=== PATIENT | male | born 1945 | race Caucasian/White ===

== ENCOUNTER 2017-10-07 11:22 | Emergency (ER) | payer OTHER, BC ==
[~2017-10-07] VITALS: Ht 180.3 cm; Wt 109.0 kg
[~2017-10-07 11:22] MED LIST: ASPI81TA28 PO; GLCSR25 PO; LXP/20 PO; NVLGIPEN SC; OMEP20CA9 PO; ROSU5TAB PO; TADA10TA PO; TRAZ-120 PO; ZTA10 PO; [UNRECOGNIZED DRUG - SUPPLY] SC
[2017-10-07 11:26] VITALS: TEMP 36.5; Ht 180.3 cm; Wt 109.0 kg
--- NOTE | 2017-10-07 12:21 | DIAGNOSTIC IMAGING REPORT ---
LEFT KNEE 4 VIEWS CLINICAL HISTORY: Left knee pain status post trauma COMPARISON: None DISCUSSION: No acute fractures or dislocations are visualized. There are tiny dorsal patellar spurs. IMPRESSION: No acute fractures or dislocations identified. Electronically signed by: Lopez Jeter M.D. 10/07/2017 12:19 PM Dictated Date/Time: 10/07/2017 12:18 PM
[2017-10-07] MEDS ORDERED: INSDGIPEN SC (12:38)
[2017-10-07] MEDS ORDERED: ENBREL INJ (12:38)
--- NOTE | 2017-10-07 13:05 | EMERGENCY ROOM VISIT NOTE ---
ED Visit Note First contact with patient: 11:35 I did guide management for the patient. I agree with the APC's assessment as discussed. Please see the APC's dictation for further details. I did independently review the x-rays. The patient twisted his knee. He was placed in a knee immobilizer and told to follow up with his doctor or orthopedics. The patient was discharged prior to my being able to examine the patient.
--- NOTE | 2017-10-07 13:13 | EMERGENCY ROOM VISIT NOTE ---
ED Visit Note First contact with patient: 11:35 CHIEF COMPLAINT: Left knee injury yesterday afternoon HISTORY OF PRESENT ILLNESS: Patient is a 71-year-old white male who presents the emergency department for evaluation of left knee pain. He reports that yesterday afternoon he went outside and slipped on snow and ice. He did not fall, but states that he had to scramble to keep his balance, and while doing that, he somehow injured the left knee. He describes feeling a pulling or a snapping sensation mostly in the back of the left knee. He took Aleve yesterday. He states that when his knees completely straight or when it is bent at 90 he is relatively comfortable. He can also stand on the knee, and can walk but keeping his knee straight. He has discomfort when the knee twist at all. He rates his pain a 10/10 presently. He has psoriatic arthritis, but no specific diagnosis involving the left knee. REVIEW OF SYSTEMS: Review of systems as per HPI. All other systems reviewed were negative. At least 6 systems reviewed. PMH: Electronic medical records are reviewed and summarized as above/below. See Problem List. SOCIAL HISTORY: Patient lives at home with his . PHYSICAL EXAM: Vital Signs: Reviewed Nurse's notes. MENTAL STATUS: Patient is a well-appearing 71-year-old white male who is awake and alert and seated in a wheelchair in no acute distress. KNEE: Examination of the left lower extremity shows note multiple skin lesions consistent with psoriasis. The left knee does not demonstrate any soft tissue swelling or knee joint effusion. There is no pain over the quadriceps tendon, the patella or the patellar ligament. The patient can extend fully, no palpable defect over the quad tendon or the patellar ligament. He has no significant medial or lateral joint line discomfort. No popliteal fullness. No gross ligamentous instability is appreciated. EMERGENCY DEPARTMENT COURSE: The patient was seen and evaluated as above. X- rays of the left knee were obtained and were unremarkable. No acute findings were noted. Conservative care measures were discussed. Differential diagnoses entertained included meniscal tear, ligamentous injury, quad tendon rupture, patellar ligament rupture, among others. The patient has a benign physical exam at this time. He was fitted with a knee immobilizer. He reports that he has access to a cane or walker if needed. He can continue Aleve, he also reports that he has meloxicam at home. He declined narcotics. He was advised to follow-up with his primary care provider or with orthopedics if his symptoms are not improving. Medication reconciliation: I attest that I have personally reviewed the patient' s current medication list. Blood pressure screening: Patient was found to have a slightly elevated blood pressure initially, likely due to circumstances. Repeat blood pressure was normal. I do not believe that the patient requires hypertension monitoring. LEFT KNEE 4 VIEWS CLINICAL HISTORY: Left knee pain status post trauma COMPARISON: None DISCUSSION: No acute fractures or dislocations are visualized. There are tiny dorsal patellar spurs. IMPRESSION: No acute fractures or dislocations identified. Problem List Medical Problems: (1) Acute renal failure Status: Resolved (2) Diabetes Status: Chronic (3) Esophageal Reflux Status: Chronic (4) Hyperkalemia Status: Resolved (5) Hypertension Status: Chronic (6) Hypokalemia Status: Resolved (7) Psoriatic arthritis Status: Chronic Current/Historical Medications Scheduled Aspirin (Aspirin Ec), 81 MG PO DAILY Escitalopram Oxalate (Escitalopram Oxalate), 20 MG PO DAILY Ezetimibe (Zetia), 10 MG PO DAILY Insulin Aspart (Novolog Flexpen), 0 UNITS SC ACHS Insulin Glargine (Lantus Solostar), 40 UNITS SC QPM Omeprazole (Prilosec), 20 MG PO BID Rosuvastatin Calcium (Crestor), 5 MG PO HS Tadalafil (Cialis), 10 MG PO UD Trazodone Hcl (Desyrel), 50 MG PO HS [Enbrel], 1 DOSE INJ WK Allergies Coded Allergies: Methotrexate (Verified Allergy, Unknown, ., 11/03/14) Streptomycin (Verified Allergy, Unknown, ., 11/03/14) Sulfa Antibiotics (Verified Allergy, Unknown, ., 11/03/14) Tamsulosin (Verified Allergy, Unknown, ., 11/03/14) Vital Signs Date Time Temp Pulse Resp B/P (MAP) Pulse Ox O2 Delivery O2 Flow Rate FiO2 10/07/17 13:34 67 20 132/57 94 10/07/17 11:26 36.5 69 16 183/80 95 Room Air Departure Information Impression Primary Impression: Left knee injury Referrals Nato Barrientos M.D. (PCP) Vinod Rodriguez MD Patient Instructions [facility] [employer] Additional Instructions Continue Aleve or Mobic according to package instructions. Acetaminophen(Tylenol) may be used for fever or pain. Use 1000mg every six hours as needed. Avoid using more than 3000mg in a 24 hour period. This medication can be taken if you need to drive, work, or perform activities which may be dangerous when taking narcotic pain medication. Ice compresses for 20 minutes at a time four times daily for 2-3 days. Use the knee immobilizer as instructed. Rest and elevate your injury. Continue current medications. Return to the ER immediately for any numbness, tingling, severe pain, extreme swelling in the extremity or as needed. Follow-up with your family physician or with orthopedic surgery if your symptoms are not improving in 5-7 days.
[2017-10-07 13:34] VITALS: BP 132/57; PULSE 67; O2SAT 94
== END 2017-10-07 13:42 | disposition home or self-care (01) ==
LOC: C.EDB 11:23 → C.EDD 13:42
DX: S89.92XA Unspecified injury of left lower leg, initial encounter (principal); W00.9XXA Unspecified fall due to ice and snow, initial encounter; L40.50 Arthropathic psoriasis, unspecified; E11.9 Type 2 diabetes mellitus without complications; I10 Essential (primary) hypertension; Z79.82 Long term (current) use of aspirin; Z79.4 Long term (current) use of insulin

== ENCOUNTER 2020-03-15 10:35 | Observation (INO) ==
--- NOTE | 2020-03-15 11:23 | Emergency Department Note ---
History of Present Illness General Chief complaint: Shortness of Breath/Dyspnea Stated complaint: SOB, CHEST HEAVINESS, REF'D BY [facility] Time Seen by Provider: 03/15/20 11:07 Source: patient Mode of arrival: ambulatory Limitations: no limitations History of Present Illness Maximum Pain Intensity: 4 This patient was sent over from Dr. Mar's office after having weakness and diarrhea and shortness of breath as well as chest tightness. He has had this for a couple days the chest tightness is been constant he has had no cough but has had shortness of breath. He had nausea as well. No blood or melena in his stool. No fever chills he does have some mild achiness mostly in the back mild upper abdominal pain. His neighbor did have COVID within the last week or so. Otherwise no exposures. His who he lives with is well. Nothing in particular makes his pain better or worse. No associated dizziness or lighthe adedness. No focal numbness weakness. No blood or melena in stool. Home Medications Home Medications Medication Instructions Recorded Confirmed Type aspirin [Aspirin Low Dose] 81 mg PO DAILY #0 11/03/14 03/15/20 History escitalopram oxalate 20 mg PO DAILY #0 11/03/14 03/15/20 History rosuvastatin [Crestor] 5 mg PO DAILY #0 11/03/14 03/15/20 History trazodone 50 mg PO HS #0 11/03/14 03/15/20 History doxazosin 2 mg PO DAILY 03/15/20 03/15/20 History ezetimibe [Zetia] 10 mg PO DAILY 03/15/20 03/15/20 History insulin glargine [Lantus U-100 50 unit SUBCUT PM 03/15/20 03/15/20 History Insulin] insulin lispro [Humalog U-100 1 sliding scale dose SUBCUT 03/15/20 03/15/20 History Insulin] USEASDIRECTD irbesartan-hydrochlorothiazide 1 tab PO DAILY 03/15/20 03/15/20 History [Avalide] metformin 1,000 mg PO DAILY 03/15/20 03/15/20 History metformin 1,500 mg PO QPM 03/15/20 03/15/20 History multivitamin 1 tab PO DAILY 03/15/20 03/15/20 History omeprazole 20 mg PO DAILY 03/15/20 03/15/20 History secukinumab [Cosentyx Pen] 2 mg SUBCUT QPM 03/15/20 03/15/20 History Allergies Allergy/AdvReac Type Severity Reaction Status Date / Time methotrexate Allergy Unknown . Verified 03/15/20 11:26 streptomycin Allergy Unknown . Verified 03/15/20 11:26 Sulfa (Sulfonamide Allergy Unknown . Verified 03/15/20 11:26 Antibiotics) tamsulosin Allergy Unknown . Verified 03/15/20 11:26 Past Med/Surg History Family History (Updated 03/15/20 @ 14:47 by Meeta Martino DO) Father Myocardial infarction hx of bypass Social History (Updated 03/15/20 @ 14:47 by Meeta Martino DO) Preferred Language: [place]ralt[place] Communication Ability: Effective Scientific Research Manager Required: No Beliefs That Will Affect Care: None Current Living Situation: Spouse Other Information That Helps Us Care for You: No Feels Safe at Home: Yes Safety Concerns: Feels Safe At This Time Smoking Status: Former smoker Number of Years Since Quit: 50 ; Hx Alcohol Use: Yes Alcohol Intake Frequency Comment: once a month Hx Substance Use: No Immunizations: Past medical history includes diabetes. Denies cardiac or pulmonary disease. He is on no blood thinners besides aspirin Family historydenies cardiac disease Social history does not smoke. and lives locally with Review of Systems A total of 10 systems reviewed and were otherwise negative Physical Exam Vital Signs Vital Signs - 24 hr 03/15/20 10:38 03/15/20 11:00 03/15/20 11:01 Temperature 37.0 C Temperature Source Oral Pulse Rate 84 79 Pulse Rate from SpO2 Sensor Respiratory Rate 20 13 Respiratory Effort / Characteristics Non-Labored Short of Breath Respiratory Depth Normal Normal Respiratory Pattern Regular Blood Pressure 118/64 Blood Pressure Mean 82 Pulse Oximetry 94 Oxygen Delivery Method Room Air Sepsis Recent Fever Within 48 Hours No Sepsis Action Taken by Nursing No Action Required 03/15/20 11:18 03/15/20 11:30 03/15/20 12:10 Temperature Temperature Source Pulse Rate 76 73 Pulse Rate from SpO2 Sensor Respiratory Rate 14 20 Respiratory Effort / Characteristics Respiratory Depth Respiratory Pattern Blood Pressure Blood Pressure Mean Pulse Oximetry 93 Oxygen Delivery Method Room Air Room Air Sepsis Recent Fever Within 48 Hours Sepsis Action Taken by Nursing 03/15/20 12:30 03/15/20 13:00 03/15/20 13:30 Temperature Temperature Source Pulse Rate 76 73 73 Pulse Rate from SpO2 Sensor 76 80 Respiratory Rate 13 21 22 Respiratory Effort / Characteristics Respiratory Depth Respiratory Pattern Blood Pressure Blood Pressure Mean Pulse Oximetry 91 90 Oxygen Delivery Method Room Air Room Air Sepsis Recent Fever Within 48 Hours Sepsis Action Taken by Nursing 03/15/20 14:01 03/15/20 14:30 Temperature Temperature Source Pulse Rate 75 73 Pulse Rate from SpO2 Sensor 75 73 Respiratory Rate 12 16 Respiratory Effort / Characteristics Respiratory Depth Respiratory Pattern Blood Pressure 129/60 138/68 Blood Pressure Mean 73 101 Pulse Oximetry 96 95 Oxygen Delivery Method Room Air Room Air Sepsis Recent Fever Within 48 Hours Sepsis Action Taken by Nursing General: Well developed well nourished in no acute distress, breathing com fortably on room air. Normal speech HEENT: Normal cephalic atraumatic. Pupils are equal round and reactive to light. Extraocular movements are intact. Oropharynx is pink with moist mucous membranes. No swelling of the mouth lips or tongue. Neck: Supple with a midline trachea. No meningeal signs or stiffness, no JVD or bruits. No Stridor. Chest: Clear to auscultation bilaterally. No wheezes or rhonchi. No increased work of breathing. Heart: Regular rate and rhythm without murmurs or gallops. Abdomen: Soft nontender, nondistended without rebound guarding or rigidity. Extremities: No cyanosis clubbing or edema. No calf tenderness or assymetry Spine/Back. Non tender to palpation. No CVA tenderness Skin: Good turgor without rashes. Neurologic exam: Cranial nerves two through 12 are intact. Motor and sensation are intact and symmetrical throughout. Course Administered Medications Discontinued Medications Al Hydrox/Mg Hydrox/Simethicone () Confirm Administered Dose 1 dose PO .[employer]-MED ONE Stop: 03/15/20 14:37 Last Admin: 03/15/20 14:40 Dose: 1 dose Documented by: [id number] Al Hydrox/Mg Hydrox/Simethicone 18 ml/ Lidocaine HCl 6 ml/ BARCODE IDENTIFIER 1 ea 0 ml PO ONE ONE Stop: 03/15/20 14:38 Last Admin: 03/15/20 14:45 Dose: Not Given Documented by: [id number] Medical Decision Making Differential Diagnosis Acute coronary syndrome, arrhythmia, CHF, pneumonia, sepsis, COVID, electrolyte or metabolic abnormality, diabetic emergency Medical Records Attestation: I reviewed the patient's medical records. Home Medications Current Medication List: was personally reviewed by me Laboratory Data Attestation: I reviewed the patient's lab results. Result diagrams: 03/15/20 10:50 03/15/20 10:50 Lab Results 03/15/20 03/15/20 03/15/20 Range/Units 10:50 10:50 10:50 WBC 14.06 H (4.8-10.8) K/uL RBC 4.85 (4.7-6.1) M/uL Hgb 14.5 (14.0-18.0) g/dL Hct 43.5 (42-52) % MCV 89.7 (80-100) fL MCH 29.9 (25-34) pg MCHC 33.3 (32-36) g/dL RDW Std Deviation 43.8 (36.4-46.3) fL RDW Coeff of Matt 13.4 (11.5-14.5) % Plt Count 244 (130-400) K/uL MPV 10.0 (7.4-10.4) fL Immature Gran % (Auto) 0.3 % Neut % (Auto) 80.9 % Lymph % (Auto) 9.6 % [place] % (Auto) 6.5 % Eos % (Auto) 2.5 % Baso % (Auto) 0.2 % Neut # (Auto) 11.38 H (1.4-6.5) K/uL Lymph # (Auto) 1.35 (1.2-3.4) K/uL [place] # (Auto) 0.91 H (0.11-0.59) K/uL Eos # (Auto) 0.35 (0-0.5) K/uL Baso # (Auto) 0.03 (0-0.2) K/uL Immature Gran # (Auto) 0.04 H (0.00-0.02) K/uL PT 10.9 (9.0-12.0) Seconds INR 1.0 (0.9-1.1) APTT 29.3 (21.0-31.0) Seconds PTT Ratio 1.1 Sodium 135 L (136-145) mmol/L Potassium 4.2 (3.5-5.1) mmol/L Chloride 101 (98-107) mmol/L Carbon Dioxide 26 (21-32) mmol/L Anion Gap 8.0 (3-11) BUN 20 H (7-18) mg/dl Creatinine 1.22 (0.6-1.4) mg/dl Est Cr Clr Drug Dosing 68.0 ml/min Est GFR ( Amer) 68.2 Est GFR (Non-Af Amer) 58.9 BUN/Creatinine Ratio 16.5 (10-20) Glucose 229 H (70-99) mg/dl Calcium 9.4 (8.5-10.1) mg/dl Total Bilirubin 0.5 (0.2-1) mg/dl AST 26 (15-37) U/L ALT 22 (12-78) U/L Alkaline Phosphatase 115 (45-117) U/L Troponin I < 0.015 (0-0.045) ng/ml NT-Pro-B Natriuret Pep 37 (0-900) pg/ml Total Protein 8.5 H (6.4-8.2) gm/dl Albumin 3.4 (3.4-5.0) gm/dl Globulin 5.1 H (2.5-4.0) gm/dl Albumin/Globulin Ratio 0.7 L (0.9-2) Lipase 144 (73-393) U/L COVID-19 PCR (Negative) 03/15/20 Range/Units 12:00 WBC (4.8-10.8) K/uL RBC (4.7-6.1) M/uL Hgb (14.0-18.0) g/dL Hct (42-52) % MCV (80-100) fL MCH (25-34) pg MCHC (32-36) g/dL RDW Std Deviation (36.4-46.3) fL RDW Coeff of Matt (11.5-14.5) % Plt Count (130-400) K/uL MPV (7.4-10.4) fL Immature Gran % (Auto) % Neut % (Auto) % Lymph % (Auto) % [place] % (Auto) % Eos % (Auto) % Baso % (Auto) % Neut # (Auto) (1.4-6.5) K/uL Lymph # (Auto) (1.2-3.4) K/uL [place] # (Auto) (0.11-0.59) K/uL Eos # (Auto) (0-0.5) K/uL Baso # (Auto) (0-0.2) K/uL Immature Gran # (Auto) (0.00-0.02) K/uL PT (9.0-12.0) Seconds INR (0.9-1.1) APTT (21.0-31.0) Seconds PTT Ratio Sodium (136-145) mmol/L Potassium (3.5-5.1) mmol/L Chloride (98-107) mmol/L Carbon Dioxide (21-32) mmol/L Anion Gap (3-11) BUN (7-18) mg/dl Creatinine (0.6-1.4) mg/dl Est Cr Clr Drug Dosing ml/min Est GFR ( Amer) Est GFR (Non-Af Amer) BUN/Creatinine Ratio (10-20) Glucose (70-99) mg/dl Calcium (8.5-10.1) mg/dl Total Bilirubin (0.2-1) mg/dl AST (15-37) U/L ALT (12-78) U/L Alkaline Phosphatase (45-117) U/L Troponin I (0-0.045) ng/ml NT-Pro-B Natriuret Pep (0-900) pg/ml Total Protein (6.4-8.2) gm/dl Albumin (3.4-5.0) gm/dl Globulin (2.5-4.0) gm/dl Albumin/Globulin Ratio (0.9-2) Lipase (73-393) U/L COVID-19 PCR NEGATIVE (Negative) Imaging Data Attestation: I personally reviewed and interpreted this imaging study as follows: My Impression: Checks x-ray: No acute infiltrate failure, pneumothorax on my interpretation Radiologist's Impression: XR chest 1V portable CLINICAL HISTORY: Atypical chest pain COMPARISON STUDY: 11/03/2014 FINDINGS: The heart is enlarged. There is no focal pulmonary consolidation. There is no failure. There are no pleural effusions.[ IMPRESSION: Mild cardiomegaly. No evidence of focal pulmonary consolidation ECG Data Indication: + chest pain Rate (beats per minute): 75 Rhythm: + normal sinus ECG Intervals/blocks: + Normal QRS, + Normal QT and + Normal DE ECG [place]: + Normal ECG ST segments: + Normal ST segments ECG Findings: no PACs and no PVCs Comparison ECG Date: from Blood Pressure Blood Pressure Findings: Elevated blood pressure Blood Pressure Disposition: elevated BP felt to be situational MDM Narrative This patient comes in as described above. He was placed in room a 11 he has had chest pain and shortness of breath. He also has had a exposure to COVID he is also had diarrhea and achiness. Given that he is diabetic and has had chest pain he will all likelihood need to be admitted to the hospital for further cardiac rule out. His initial EKG looks okay however. I did do the rapid Covid testing as well. IV access was established and multiple blood testing was obtained. EKG does not suggest acute ischemic changes or significant arrhythmia. She has no acute electrolyte or metabolic abnormalities. Troponin is not elevated. Chest x-ray is unremarkable. Rapid COVID was negative. I do think given that he is a diabetic that he should be admitted/observe for further cardiac work-up and evaluation and have consulted Meeta Martino, the [facility] hospitalist to see him in athletics measures. Continuous cardiac monitoring: An order was placed for continuous cardiac monitoring. The patient was noted to be in normal sinus rhythm at a rate of 80. Impression & Plan Chest pressure, SOB (shortness of breath), Diabetes, Nausea, Lab test negative for COVID-19 virus Discharge Plan Visit Data *Final* Discharge Date/Time: 03/15/20 15:27 Chief Complaint: Shortness of Breath/Dyspnea Stated Complaint: SOB, CHEST HEAVINESS, REF'D BY [facility] ED Provider: Eren Lamb Discharge Problem: Chest pressure, SOB (shortness of breath), Diabetes, Nausea, Lab test negative for COVID-19 virus Patient Disposition: Admitted As Inpatient Discharge Instructions Interventions: ED Discharge Assessment Last Done: 03/15/20 15:27 Discharge Problem: Diabetes Qualifiers: Diabetes mellitus type: type 2 Diabetes mellitus fdc insulin use: with long term care pharmacist use Diabetes mellitus complication status: with other specified complication Qualified Code(s): E11.69 - Type 2 diabetes mellitus with other specified complication
[2020-03-15 11:33] LABS: Basophils # (auto) 0.03 K/uL (0-0.2); Basophils % (auto) 0.2 %; Eosinophils # (auto) 0.35 K/uL (0-0.5); Eosinophils % (auto) 2.5 %; Hematocrit (blood only) 43.5 % (42-52); Hemoglobin 14.5 g/dL (14.0-18.0); Immature Granulocytes # (auto) 0.04 K/uL (0.00-0.02); Immature Granulocytes % (auto) 0.3 %; Lymphocytes # (auto) 1.35 K/uL (1.2-3.4); Lymphocytes % (auto) 9.6 %; Mean Corpuscular Hemoglobin 29.9 pg (25-34); Mean Corpuscular Hgb Conc 33.3 g/dL (32-36); Mean Corpuscular Volume 89.7 fL (80-100); Monocytes # (auto) 0.91 K/uL (0.11-0.59); Monocytes % (auto) 6.5 %; Neutrophils # (auto) 11.38 K/uL (1.4-6.5); Neutrophils % (auto) 80.9 %; Platelet Count 244 K/uL (130-400); RDW Coefficient of Variation 13.4 % (11.5-14.5); RDW Standard Deviation 43.8 fL (36.4-46.3); Red Blood Count 4.85 M/uL (4.7-6.1); White Blood Count 14.06 K/uL (4.8-10.8)
[2020-03-15 11:40] LABS: Alanine Aminotransferase 22 U/L (12-78); Albumin Level 3.4 gm/dl (3.4-5.0); Aspartate Aminotransferase 26 U/L (15-37); BUN Creatinine Ratio 16.5 (10-20); Blood Urea Nitrogen 20 mg/dl (7-18); Calcium 9.4 mg/dl (8.5-10.1); Carbon Dioxide 26 mmol/L (21-32); Chloride 101 mmol/L (98-107); Est GFR (African American) 68.2; Est GFR (Non-African American) 58.9; Glucose 229 mg/dl (70-99); Lipase 144 U/L (73-393); Potassium 4.2 mmol/L (3.5-5.1); Sodium 135 mmol/L (136-145)
[2020-03-15 11:45] LABS: Partial Thromboplastin Ratio 1.1; Partial Thromboplastin Time 29.3 Seconds (21.0-31.0); Prothrombin Time 10.9 Seconds (9.0-12.0)
[2020-03-15 11:49] LABS: Albumin Globulin Ratio 0.7 (0.9-2); Alkaline Phosphatase 115 U/L (45-117); Bilirubin,Total 0.5 mg/dl (0.2-1); Globulin 5.1 gm/dl (2.5-4.0); NT Pro B Type Natriuretic Pept 37 pg/ml (0-900); Total Protein 8.5 gm/dl (6.4-8.2); Troponin I < 0.015 ng/ml (0-0.045)
--- NOTE | 2020-03-15 11:57 | XRay Report ---
XR chest 1V portable CLINICAL HISTORY: Atypical chest pain COMPARISON STUDY: 11/03/2014 FINDINGS: The heart is enlarged. There is no focal pulmonary consolidation. There is no failure. Ther e are no pleural effusions.[ IMPRESSION: Mild cardiomegaly. No evidence of focal pulmonary consolidation ACT 112: Negative or not required by law. Electronically signed by: Lopez Jeter M.D. 03/15/2020 11:55 AM
--- NOTE | 2020-03-15 12:48 | History & Physical Report ---
Date of Service March 15, 2020 Assessment & Plan (1) Chest pressure: r/o ACS given DM, FHx of CO CXR: neg for acute Trop neg x1, serial pending EKG WNL PRP, lipase WNL CBC with elevated WBC, otherwise WNL Does relate that this feels similar to GERD and with slight improvement s/p repeat omeprazole dosing--GI cocktail trial t/c CT given breathing restrictions t/c stress ECHO if trop neg x3 given breathing restrictions and increased chest pressure with walking dog A1c, lipids pending--none in our EHR Lyme pending Takes aspirin 81mg at baseline for prevention COVID 19 testing neg, will not continue with isolation precautions (2) Leukocytosis: Uncertain etiology Repeat in AM (3) DM type 2 (diabetes mellitus, type 2): Lantus, metformin as at home given likely short duration of admission SSI PRN A1c pending (4) Psoriasis: Worsening in the setting of holding home cosentyx due to immunocompromise concerns with COVID (5) Hyperlipidemia: continue home meds (6) GERD (gastroesophageal reflux disease): As above continue home meds (7) DVT prophylaxis: SCDs, aspirin 81mg History of Present Illness Primary Care Provider: Nato Barrientos MD 74 y/o M c/o chest pressure. Pt states that this started yesterday. He states that he was at rest with this. Pain is substernal and upper chest. He states it feels like his heartburn, but more intense. He did take an extra omeprazole and this did relieve this pressure somewhat, however it returned. It has persisted. He states that when he is moving around it feels more tight. No sravan chest p ain. He states that he feels like he has to take a deeper breath when he is walking his dog. No sravan SOB, but he does feel that "I just need more air". He denies usual exercise other than walking his dog. He did have diarrhea x1 yesterday. None since. He was also nauseated yesterday, but no emesis. He has had decreased PO today due to no appetite. Pt has never felt like this prior, other than the similarity noted to his reflux above. Pt denies fever, abd pain, LE pain or swelling. Pt feels no different at this time. 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 Pt states he has a neighbor who was dx with COVID. He states that he has had no close contact with this neighbor. He has spoken with the neighbor while the neighbor was out on his tractor, but this was from over 20 feet away. Pt was taken off of his cosentyx in November due to concerns that it would weaken his immune system. He states that his psoriasis is worse at this time. Allergies Allergy/AdvReac Type Severity Reaction Status Date / Time methotrexate Allergy Unknown . Verified 03/15/20 11:26 streptomycin Allergy Unknown . Verified 03/15/20 11:26 Sulfa (Sulfonamide Allergy Unknown . Verified 03/15/20 11:26 Antibiotics) tamsulosin Allergy Unknown . Verified 03/15/20 11:26 Home Medications Home Medications Medication Instructions Recorded Confirmed Type aspirin [Aspirin Low Dose] 81 mg PO DAILY #0 11/03/14 03/15/20 History escitalopram oxalate 20 mg PO DAILY #0 11/03/14 03/15/20 History rosuvastatin [Crestor] 5 mg PO DAILY #0 11/03/14 03/15/20 History trazodone 50 mg PO HS #0 11/03/14 03/15/20 History doxazosin 2 mg PO DAILY 03/15/20 03/15/20 History ezetimibe [Zetia] 10 mg PO DAILY 03/15/20 03/15/20 History insulin glargine [Lantus U-100 50 unit SUBCUT PM 03/15/20 03/15/20 History Insulin] insulin lispro [Humalog U-100 1 sliding scale dose SUBCUT 03/15/20 03/15/20 History Insulin] USEASDIRECTD irbesartan-hydrochlorothiazide 1 tab PO DAILY 03/15/20 03/15/20 History [Avalide] metformin 1,000 mg PO DAILY 03/15/20 03/15/20 History metformin 1,500 mg PO QPM 03/15/20 03/15/20 History multivitamin 1 tab PO DAILY 03/15/20 03/15/20 History omeprazole 20 mg PO DAILY 03/15/20 03/15/20 History secukinumab [Cosentyx Pen] 2 mg SUBCUT QPM 03/15/20 03/15/20 History Past Med/Surg History Family History (Updated 03/15/20 @ 14:47 by Meeta Martino DO) Father Myocardial infarction hx of bypass Social History (Updated 03/15/20 @ 14:47 by Meeta Martino DO) Feels Safe at Home: Yes Smoking Status: Former smoker Number of Years Since Quit: 50 ; Hx Alcohol Use: Yes Alcohol Intake Frequency Comment: once a month Hx Substance Use: No Review of Systems Review of Systems: Pertinent positives and negatives reviewed in HPI--all others negative Physical Exam Constitutional: WD/WN, vitals as above Eyes: normal visual gil by confrontation and + anicteric sclerae Neck: normal visual inspection and trachea midline Respiratory: normal respiratory effort, lungs clear to auscultation Cardiovascular: Rate/Rhythm: regular rate and regular rhythm Gastrointestinal (Abdomen): Inspection/Auscultation: abdomen not distended Percussion/Palpation: abdomen soft; abdomen nontender Musculoskeletal: Head/Neck/Chest: normocephalic and head atraumatic negative for edema, peripheral pulses intact Skin: UE with lesions c/w psoriasis Neurologic: awake; not confused Speech / Cognition: normal speech Psychiatric: A+Ox3, euthymic affect Results & Data Results & Data ([facility]) Vital Signs (Past 12 Hours) Vital Signs Temp Pulse Resp BP Pulse Ox 03/15/20 12:10 73 20 93 03/15/20 11:30 76 14 03/15/20 11:01 79 13 03/15/20 10:38 37.0 C 84 20 118/64 94 Diagnostic Findings CXR: neg for acute ECG Rhythm: normal sinus Code Status & VTE Plan Code Status Full code VTE Prophylaxis Plan VTE Prophylaxis will be ordered: Yes PG Care Time/CCT Total # of Minutes Spent Total Time Spent with Patient: Total time spent is greater than 50% in coordination of care (as documented) at patient's floor/unit and/or counseling patient: Coding Level of Care Code 14197 OBS Care - Level 3 Diagnoses Chest pressure R07.89 Leukocytosis D72.829 DM type 2 (diabetes mellitus, type 2) E11.9 Psoriasis L40.9 Hyperlipidemia E78.5 GERD (gastroesophageal reflux disease) K21.9 DVT prophylaxis Z29.9
[2020-03-15] MEDS ORDERED: GI COCKTAIL ED USE PO ONE (14:36)
[2020-03-15] MEDS ORDERED: ALUMINUM/MAGNESIUM SUSP 18 ML, LIDOCAINE HCL VISCOUS 2% 6 ML, BARCODE IDENTIFIER 1 EA PO ONE (14:37)
[2020-03-15] MEDS ORDERED: GLUCOSE 40% GEL 15 GM TUBE PO PRN (15:54)
[2020-03-15] MEDS ORDERED: GLUCAGON FOR INJ 1 MG VIAL SQ PRN (15:54)
[2020-03-15] MEDS ORDERED: ONDANSETRON INJ 2 MG/ML 2 ML VIAL IV PRN (15:54)
[2020-03-15] MEDS ORDERED: GLUCOSE 10 TABS/TUBE PO PRN (15:54)
[2020-03-15] MEDS ORDERED: CARBOHYDRATES FOR HYPOGLYCEMIA PO PRN (15:54)
[2020-03-15] MEDS ORDERED: MAGNESIUM HYDROXIDE SUSP 30 ML UDC PO PRN (15:54)
[2020-03-15] MEDS ORDERED: DEXTROSE 50% 50 ML SYRINGE IV PRN (15:54)
[2020-03-15] MEDS ORDERED: ACETAMINOPHEN 325 MG TAB PO PRN (15:54)
[2020-03-15] MEDS ORDERED: METFORMIN HCL 500 MG TAB PO SCH (17:00)
[2020-03-15] MEDS: INSULIN ASPART 100 UNITS/ML 3 ML PEN SC SCH ×2 (17:31→20:16)
[2020-03-15 18:32] LABS: Lyme Ab IgG w/WB Rflx Negative (Negative); Lyme Ab IgM w/WB Rflx Negative (Negative)
[2020-03-15] MEDS ORDERED: TRAZODONE HCL 50 MG TAB PO SCH (21:00)
[2020-03-15] MEDS ORDERED: INSULIN GLARGINE SOLOSTAR 100 UNITS/ML 3 ML PEN SC SCH (21:00)
--- NOTE | 2020-03-15 21:51 | Electrocardiogram Report ---
Test Reason : Blood Pressure : / mmHG Vent. Rate : 075 BPM Atrial Rate : 075 BPM P-R Int : 198 ms QRS Dur : 090 ms QT Int : 372 ms P-R-T Axes : 056 022 046 degrees QTc Int : 415 ms Normal sinus rhythm Normal ECG When compared with ECG of 03-NOV-2014 18:01, No significant change was found Confirmed by Saturnino Ham ([id number]) on 03/15/2020 9:50:47 PM Referred By: REFERRED SELF Confirmed By:Saturnino Ham
[2020-03-16] MEDS ORDERED: METFORMIN HCL 500 MG TAB PO SCH (07:30)
[2020-03-16] MEDS: INSULIN ASPART 100 UNITS/ML 3 ML PEN SC SCH ×2 (07:56→12:27)
[2020-03-16 08:33] LABS: Basophils # (auto) 0.02 K/uL (0-0.2); Basophils % (auto) 0.1 %; Eosinophils # (auto) 0.27 K/uL (0-0.5); Eosinophils % (auto) 1.9 %; Hematocrit (blood only) 43.7 % (42-52); Hemoglobin 14.6 g/dL (14.0-18.0); Immature Granulocytes # (auto) 0.04 K/uL (0.00-0.02); Immature Granulocytes % (auto) 0.3 %; Lymphocytes # (auto) 1.17 K/uL (1.2-3.4); Lymphocytes % (auto) 8.1 %; Mean Corpuscular Hgb Conc 33.4 g/dL (32-36); Mean Corpuscular Volume 89.7 fL (80-100); Monocytes # (auto) 1.16 K/uL (0.11-0.59); Neutrophils # (auto) 11.82 K/uL (1.4-6.5); Neutrophils % (auto) 81.6 %; Platelet Count 234 K/uL (130-400); RDW Coefficient of Variation 13.3 % (11.5-14.5); RDW Standard Deviation 43.9 fL (36.4-46.3); Red Blood Count 4.87 M/uL (4.7-6.1); White Blood Count 14.48 K/uL (4.8-10.8)
[2020-03-16] MEDS ORDERED: ROSUVASTATIN CALCIUM 5 MG TAB PO SCH (09:00)
[2020-03-16] MEDS ORDERED: ESCITALOPRAM OXALATE 20 MG TAB PO SCH (09:00)
[2020-03-16] MEDS ORDERED: ASPIRIN 81 MG ECTAB PO SCH (09:00)
[2020-03-16] MEDS ORDERED: PANTOprazole 40 MG TAB PO SCH (09:00)
[2020-03-16] MEDS ORDERED: hydroCHLOROthiazide 25 MG TAB PO SCH (09:00)
[2020-03-16] MEDS ORDERED: EZETIMIBE 10 MG TABLET PO SCH (09:00)
[2020-03-16] MEDS ORDERED: MULTIVITAMIN TAB PO SCH (09:00)
[2020-03-16] MEDS ORDERED: DOXAZosin MESYLATE TAB 2 MG TAB PO SCH (09:00)
[2020-03-16] MEDS ORDERED: IRBESARTAN 150 MG TAB PO SCH (09:00)
[2020-03-16 09:05] LABS: Chol HDL Ratio 3; Cholesterol 129 mg/dl (0-200); HDL Cholesterol 51 mg/dl; LDL Cholesterol Calculated 48 mg/dl; Triglycerides 151 mg/dl (0-150); VLDL Cholesterol 30 mg/dl
[2020-03-16 09:45] LABS: Estimated Average Glucose 226 mg/dl; Hemoglobin A1C 9.5 % (4.5-5.6)
--- NOTE | 2020-03-16 13:17 | XCELERA ---
[id number]
--- NOTE | 2020-03-16 15:25 | Discharge Summary ---
Date of Service March 16, 2020 Admission HPI Per Admitting Provider 74 y/o M c/o chest pressure. Pt states that this started yesterday. He states that he was at rest with this. Pain is substernal and upper chest. He states it feels like his heartburn, but more intense. He did take an extra omeprazole and this did relieve this pressure somewhat, however it returned. It has persisted. He states that when he is moving around it feels more tight. No sravan chest pain. He states that he feels like he has to take a deeper breath when he is walking his dog. No sravan SOB, but he does feel that "I just need more air". He denies usual exercise other than walking his dog. He did have diarrhea x1 yesterday. None since. He was also nauseated yesterday, but no emesis. He has had decreased PO today due to no appetite. Pt has never felt like this prior, other than the similarity noted to his reflux above. Pt denies fever, abd pain, LE pain or swelling. Pt feels no different at this time. 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 Pt states he has a neighbor who was dx with GERRY. He states that he has had no close contact with this neighbor. He has spoken with the neighbor while the neighbor was out on his tractor, but this was from over 20 feet away. Pt was taken off of his cosentyx in November due to concerns that it would weaken his immune system. He states that his psoriasis is worse at this time. Admission Exam Per Admitting Provider Constitutional: WD/WN, vitals as above Eyes: normal visual gil by confrontation and + anicteric sclerae Neck: normal visual inspection and trachea midline Respiratory: normal respiratory effort, lungs clear to auscultation Cardiovascular: Rate/Rhythm: regular rate and regular rhythm Gastrointestinal (Abdomen): Inspection/Auscultation: abdomen not distended Percussion/Palpation: abdomen soft; abdomen nontender Musculoskeletal: Head/Neck/Chest: normocephalic and head atraumatic negative for edema, peripheral pulses intact Skin: UE with lesions c/w psoriasis Neurologic: awake; not confused Speech / Cognition: normal speech Psychiatric: A+Ox3, euthymic affect Principal Diagnosis Chest pain Discharge Exam Constitutional WD/WN, vitals as above Eyes + anicteric sclerae ENMT external ear and nose normal, oropharynx normal Neck normal visual inspection and trachea midline Respiratory normal respiratory effort, lungs clear to auscultation Cardiovascular RRR, no murmur, no edema Heart Sounds: normal S1 and normal S2 Gastrointestinal (Abdomen) normal bowel sounds, soft, nontender, no hepatosplenomegaly Skin no rashes, warm and dry Psychiatric A+Ox3, euthymic affect Discharge Data Allergies Allergy/AdvReac Type Severity Reaction Status Date / Time methotrexate Allergy Unknown . Verified 03/15/20 11:26 streptomycin Allergy Unknown . Verified 03/15/20 11:26 Sulfa (Sulfonamide Allergy Unknown . Verified 03/15/20 11:26 Antibiotics) tamsulosin Allergy Unknown . Verified 03/15/20 11:26 Consultations 03/15/20 12:34 ED Decision to Admit Stat Hospital Course (1) Chest pain: Mr. Anderson is a 74 yo gentleman with a PMHx of GERD and type II diabetes who presented to the ED with chest pain. He was admitted for an ACS rule out. Trops x 3 were negative. EKG normal. Stress ECHO showing normal function, no symptoms or EKG changes with physical activity, normal LV function, only mild mitral regurg. The etiology of his chest pain was thought to be a flare of his GERD. Outpatient items to do: Risk factor management (see below) (2) GERD (gastroesophageal reflux disease): Thought to be cause of his chest pain. He likened the discomfort to acid reflux and admitted some relief with taking an extra omeprazole dose. He was counseled on avoiding dietary triggers of reflux such as citrus, alcohol, chocolate and coffee. He was counseled on sitting upright for at least 30 minutes after eating (prior to this he had a habit of lying down after consuming a meal). Prior to hospital stay he has taking a 20mg daily dose of omeprazole. He was counseled to either double his dose or stay at the 20mg dose and take famotidine prn for increased symptoms. Oupatient items to do: Follow up on GERD symptoms (3) DM type 2 (diabetes mellitus, type 2): Risk factor for ACS. Found to have an A1c of 9.5 on admission, well above goal. Counseled patient extensively on how elevated blood sugars clog arteries and lead to downstream complications. His A1c has been in the artery-clogging region for quite sometime (on review of outside records A1c from 01/2019 was 8.9). Counseled patient on avoiding carbohydrate rich foods. Currently, he is taking Lantus 60units daily. He is checking is blood glucose only once daily before dinner and taking a mealtime Humalog dose according to this value. Mr. Stewart was counseled on the principle of carb counting, and dosing Humalog according to suspected carbohydrate content of meal. Overall, he his A1c thought to be elevated to insufficient insulin dosing. He is on an ARB, a daily baby ASA and a high intensity statin. Lipid panel drawn in hospital showed TH of 151, total chol of 129, LDL 48, HDL 57, ratio of 3. Outpatient items to do: Continue education of carbohydrate counting, insulin:carb ratios and meal-time insulin dosing. Patient should be checking sugars TID and would benefit from humalog dosing with each meal, not just dinner. (4) Leukocytosis: On admission WBC elevated to 14, although there was no suspicion for infectious etiology. On day of discharge level was repeated and remained of 14. Outpatient items to do: consider repeating in several weeks and if still elevated, consider ordering a smear to assess for atypia. Total Time Total Time Spent Total Time Spent (In Minutes): <30 Discharge Plan Discharge Items Patient Disposition: Home - Self-Care Reason For Visit: CHEST PRESSURE Discharge Diagnosis: Chest pain Activity: Resume your previous activity Non-emergency contact: Primary Care Provider Call non-emergency contact if: your symptoms worsen Follow-up/Referrals: Nato Barrientos MD [Primary Care Provider] - Diet: Carb Consistent or DM2 Addtl Attending Provider Instructions: You were hospitalized at [facility] for evaluation of chest pain. All testing was reassuring that you did not have a heart attack. Instead, the cause of your chest pain seemed to be related to your acid reflux. By the time of discharge, your symptoms resolved. We recommend you continue your Omeprazole 20mg, daily, but if your symptoms recur, you may take a second dose each day. We reviewed dietary triggers that are known to worsen reflux. They include citrus, alcohol, chocolate, any red/marinara sauce, and coffee. You may want to avoid or reduce your consumption of these items. We also recommend you stay upright for at least 30 minutes after eating any meal to reduce reflux symptoms. While you were in the hospital your hemoglobin A1c was ordered an was elevated to 9.5. Your goal is < 7.0. This is concerning because elevated blood sugars clog arteries, which can lead to heart attacks, strokes, blindness, neuropathy, and kidney damage. We discussed your diabetes and your current therapy regimen. We recommend you continue to take Metformin 2.5 grams, daily, and to continue your current basal, or long-acting insulin regimen. However, when you see your primary care provider next week, you will likely adjust your meal-time insulin dosing with Humalog to three times per day, rather than just at dinner. We introduced the concept of 'carb counting' and administering yourself the appropriate amount of insulin according to carbs you consume. In general, the fewer carbs you consume, the less insulin you need to "cover" them. We also encouraged routine exercise, as physical activity haley up excess carbohydrates that you consume. Please see your PCP within one week of discharge. Pending Studies at Discharge: No Stand-Alone Forms: My [facility], Smoking Cessation Medications and DC Order Prescriptions: Continued trazodone 50 mg Tablet 50 mg PO HS Qty: 0 RF: 0 escitalopram oxalate 20 mg Tablet 20 mg PO DAILY Qty: 0 RF: 0 rosuvastatin [Crestor] 5 mg Tablet 5 mg PO DAILY Qty: 0 RF: 0 aspirin [Aspirin Low Dose] 81 mg Tablet,Delayed Release (Dr/Ec) 81 mg PO DAILY Qty: 0 RF: 0 multivitamin Tablet 1 tab PO DAILY RF: 0 omeprazole 20 mg Capsule,Delayed Release(Dr/Ec) 20 mg PO DAILY RF: 0 doxazosin 2 mg Tablet 2 mg PO DAILY RF: 0 ezetimibe [Zetia] 10 mg Tablet 10 mg PO DAILY RF: 0 Lantus U-100 Insulin 100 unit/mL Solution 50 unit SUBCUT PM RF: 0 irbesartan-hydrochlorothiazide [Avalide] 150-12.5 mg Tablet 1 tab PO DAILY RF: 0 metformin 1,000 mg Tablet 1,000 mg PO DAILY RF: 0 metformin 1,000 mg Tablet 1,500 mg PO QPM RF: 0 insulin lispro [Humalog U-100 Insulin] 100 unit/mL Solution 1 sliding scale dose SUBCUT USEASDIRECTD RF: 0 Cosentyx Pen 150 mg/mL Pen Injector 2 mg SUBCUT QPM RF: 0 Discharge Orders: Discharge Order (Routine); Ordered 03/16/20 Ordered By: Neema Polk/Other Patient Handouts: Diabetes and Heart Disease, Healthy Meals for Diabetes, Diabetes: The Benefits of Exercise, Managing Diabetes: The A1C Test Admission Data Admit Date/Time: 03/15/20 14:41 Attending Provider: Seb Andrea Admit Provider: Meeta Martino Primary Care Provider: Nato Barrientos Other Providers: Meeta Martino Other Interventions: Discharge Summary Assessment (RN) Last Done: 03/16/20 15:35 DC Date/Time DO NOT enter until pt leaves facility: 03/16/20 15:54 Supervising Physician Co-Signing Physician Notes I personally examined the patient and verified all donnelly points of history and exam, discussed case, and agree with decision making with Dr Tavera. feeling better. stress negative. discussed most likely GERD vitals noted nad heent nc at mmm breathing unlabored no accessory muscles good effort skin no rashes no pallor or icterus CP - GERD. troponins negative, stress reassurring and sx fit best w GERD. GERD/indigestion - discussed lifestyle/diet changes. can increase PPI. uncontrolled DM - dr taevra provided extensive education. or ongoing adjustments in insulin and lifestyle changes stable for home. otherwise as above Resident Activity Tracking Resident Involvement: Resident Care Provided Care Provided: Adult Hospital Medicine
--- NOTE | 2020-03-16 18:23 | Billing Data ---
Date of Service March 16, 2020 Coding Level of Care Code 43279 OBS Care - Discharge
== END 2020-03-16 15:54 | disposition home or self-care (01) ==
LOC: 2W 10:35 → ED 10:35 → SUATTDRO 14:41 → 2W 15:27

== ENCOUNTER 2025-04-20 15:44 | Inpatient (IN) ==
--- NOTE | 2025-04-20 16:30 | Emergency Department Note ---
Impression & Plan Acute confusion, Hypoglycemia, Elevated troponin ED Provider Note HISTORY OF PRESENT ILLNESS: Patient is a 79-year-old male presenting with hypoglycemia. Patient presents via EMS. Patient reportedly had a glucose of over 400 at lunchtime and took his 20 units of Humalog insulin. He reportedly took his blood sugar about 30 minutes later and his glucose was still in the 400s so states he took another dose of insulin. She thinks it was another 20 units of Humalog. She states that the patient went to shower and when he was trying to get dressed he fell and landed on his buttock. He is currently complaining of low back pain. He did not strike his head or lose consciousness. Family reports that he was quite confused when his sugar was very high and now he seems "really out of it." Patient had a fingerstick glucose in the 40s for EMS and was given D10 and Sheriff. On arrival to the emergency department, patient's blood sugar was 47. He was given orange juice. ROS: as above PHYSICAL EXAM: Constitutional: Patient appears in no acute distress. HENT: Head: Normocephalic and atraumatic. Eyes: EOMI, PERRL Mouth/Throat: Mucous membranes moist. Neck: Trachea midline. Neck supple. Cardiovascular: RRR, No murmurs, rubs or gallops. Intact distal pulses. Pulmonary/Chest: No respiratory distress. Breath sounds clear and equal bilaterally. No wheezes or rales. Abdominal: Abdomen soft, no tenderness, rebound or guarding. Musculoskeletal: No edema, tenderness or deformity noted. Skin: Warm and dry. No rash, erythema, pallor or cyanosis Neurological: Alert but confused to place and events. CN II-XII grossly intact, moving all extremities equally and fully. MDM: - Vitals signs showed hypertension. Patient had initial blood sugar of 47 on arrival to the emergency department and was given to orange juice containers. On reassessment about 15 minutes later, his blood sugar is still in the 40s. He was given more orange juice and peanut butter crackers and D50 was ordered. - History obtained via patient's family, given patient's confusion. History as above. - Chronic conditions affecting care: DM-2; HTN; HLD - Differential diagnoses include, but are not limited to: Insulin overdose; sulfonylurea use; electrolyte abnormality; spinal fracture; ACS; dysrhythmia - Order placed for continuous cardiac monitoring. At this time, monitor showed rate of 83 bpm with normal sinus rhythm, per my interpretation. - External medical records reviewed. - EKG image interpreted by myself showed normal sinus rhythm. Rate 73 bpm. QT 396. No acute ischemic changes. - Laboratory workup interpreted by myself showed leukocytosis (WBC 16.78); normal PT/INR; hypoglycemia (glucose 38); elevated troponin (25); normal lipase - Repeat troponin still elevated at 27.4. - Patient was given D50 on arrival to ER. His repeat glucose was above 100, but on repeat it went down to 80 again. Started on D10 at 80 cc/hr. - Patient's mental status improved with improvement in his hypoglycemia. However, after CT imaging he had a blood glucose level of 70 on the D10 drip. The D10 has been continued and he is now being fed a dinner tray. - CT thoracic spine wo contrast negative for acute traumatic injury. - CT lumbar spine wo contrast showed 0.7 cm disc herniation at L4/L5 causing mild canal stenosis - Discussion was had with case packer about patient's case and need for admission - Hospitalist consulted for admission - [facility] ASSESSMENT AND PLAN: Diagnosis: Acute confusion; recurrent hypoglycemia; elevated troponin Plan: Admit Past Med/Surg History Problem List (Updated 04/20/25 @ 20:07 by Perri Bella MD) Elevated troponin (Acute) Hypoglycemia (Acute) Acute confusion (Acute) Chest pain Lab test negative for COVID-19 virus (Acute) Nausea (Acute) Diabetes (Acute) SOB (shortness of breath) (Acute) DVT prophylaxis GERD (gastroesophageal reflux disease) Hyperlipidemia Psoriasis DM type 2 (diabetes mellitus, type 2) Leukocytosis Chest pressure (Acute) Medical History (Updated 04/20/25 @ 20:07 by Perri Bella MD) Heartburn HX RECENT HOSPITALIZATION WITHIN LAST MONTH - [facility] - SOB, CHEST TIGHTNESS/- CARDIAC TESTING DONE WHILE IN PT - NO CATH - DX HEARTBURN Psoriasis High cholesterol Neuropathy TOES HTN (hypertension) Acid reflux Depression Surgical History History of colonoscopy History of surgery FINGER Family History Father Myocardial infarction hx of bypass Mother Family history of diabetes mellitus Social History Smoking Status: Former smoker Tobacco Type: Cigarettes Do You Dip or Chew Tobacco: No; Hx Alcohol Use: Yes Alcohol type: hard liquor Alcohol Intake Frequency Comment: once a month Hx Substance Use: No Preferred Language: Turkish Communication Ability: Effective Test And Balance Engineer Required: No Beliefs That Will Affect Care: None Current Living Situation: Spouse Feels Safe at Home: Yes Assistive Devices: Denture - Lower and Glasses Allergies Allergies Allergy/AdvReac Type Severity Reaction Status Date / Time methotrexate Allergy Unknown "GOT GOOFY" Verified 11/16/23 15:57 streptomycin Allergy Unknown REMOTE HX Verified 11/16/23 15:57 - PT NOT SURE Sulfa (Sulfonamide Allergy Unknown ALTERED Verified 11/16/23 15:57 Antibiotics) KIDNEY FUNCTION tamsulosin AdvReac Unknown Diarrhea Verified 11/16/23 15:57 Home Meds Home Medications Medication Instructions Recorded Confirmed aspirin 81 mg tablet,delayed 81 mg PO QAM ##0 11/03/14 11/16/23 release (Lucia Low Dose Aspirin) escitalopram oxalate 20 mg tablet 10 mg PO QAM ##0 11/03/14 11/16/23 rosuvastatin 5 mg tablet (Crestor) 5 mg PO QPM ##0 11/03/14 11/16/23 trazodone 50 mg tablet 50 mg PO HS ##0 11/03/14 11/16/23 doxazosin 2 mg tablet 2 mg PO QPM 03/15/20 11/16/23 ezetimibe 10 mg tablet (Zetia) 10 mg PO QAM 03/15/20 11/16/23 insulin lispro 100 unit/mL 1 sliding scale dose subcut 03/15/20 11/16/23 subcutaneous solution (Humalog USEASDIRECTD U-100 Insulin) metformin 1,000 mg tablet See Rx Instructions .Route .COMPLEX 03/15/20 11/16/23 multivitamin 1 tab PO QAM 03/15/20 11/16/23 omeprazole 20 mg capsule,delayed 20 mg PO .EVERY OTHER DAY 03/15/20 11/16/23 release gabapentin 100 mg capsule 200 mg PO QPM 04/20/20 11/16/23 losartan 100 1 tab PO QAM 04/20/20 11/16/23 mg-hydrochlorothiazide 12.5 mg tablet guselkumab 100 mg/mL subcutaneous 100 mg subcut .[id number] 11/16/23 11/16/23 auto-injector (Tremfya) insulin glargine 100 unit/mL (3 55 unit subcut QAM 11/16/23 11/16/23 mL) subcutaneous pen (Lantus Solostar U-100 Insulin) Previous Rx's Medication Instructions Recorded azithromycin 250 mg tablet See Rx Instructions PO .COMPLEX #6 11/16/23 tabs Results & Data (ED) Vital Signs Vital Signs - 24 hr 04/20/25 15:50 04/20/25 15:59 04/20/25 16:00 Temperature 36.8 C Temperature Source Oral Pulse Rate 77 82 Pulse Rate from SpO2 Sensor Respiratory Rate 20 20 Respiratory Effort / Characteristics Non-Labored Spontaneous Respiratory Depth Normal Blood Pressure 158/104 H 192/116 H Blood Pressure Mean 122 154 Pulse Oximetry 97 Oxygen Delivery Method Room Air Sepsis Recent Fever Within 48 Hours No Sepsis New/Unexplained Change in Mental Status No Sepsis Action Taken by Nursing No Action Required 04/20/25 16:00 04/20/25 16:00 04/20/25 16:00 Temperature Temperature Source Pulse Rate 76 Pulse Rate from SpO2 Sensor Respiratory Rate 20 Respiratory Effort / Characteristics Respiratory Depth Blood Pressure 192/116 H 192/116 H Blood Pressure Mean 154 154 Pulse Oximetry Oxygen Delivery Method Sepsis Recent Fever Within 48 Hours Sepsis New/Unexplained Change in Mental Status Sepsis Action Taken by Nursing 04/20/25 16:05 04/20/25 16:26 04/20/25 16:29 Temperature Temperature Source Pulse Rate 74 84 75 Pulse Rate from SpO2 Sensor Respiratory Rate 24 20 Respiratory Effort / Characteristics Respiratory Depth Blood Pressure Blood Pressure Mean Pulse Oximetry 95 Oxygen Delivery Method Room Air Sepsis Recent Fever Within 48 Hours Sepsis New/Unexplained Change in Mental Status Sepsis Action Taken by Nursing 04/20/25 16:31 04/20/25 16:50 04/20/25 16:53 Temperature Temperature Source Pulse Rate 73 73 Pulse Rate from SpO2 Sensor Respiratory Rate 21 14 Respiratory Effort / Characteristics Respiratory Depth Blood Pressure 180/72 H Blood Pressure Mean 119 Pulse Oximetry Oxygen Delivery Method Sepsis Recent Fever Within 48 Hours Sepsis New/Unexplained Change in Mental Status Sepsis Action Taken by Nursing 04/20/25 17:01 04/20/25 17:08 04/20/25 17:35 Temperature Temperature Source Pulse Rate 76 70 Pulse Rate from SpO2 Sensor Respiratory Rate 17 25 H Respiratory Effort / Characteristics Respiratory Depth Blood Pressure 155/66 H Blood Pressure Mean 88 Pulse Oximetry Oxygen Delivery Method Sepsis Recent Fever Within 48 Hours Sepsis New/Unexplained Change in Mental Status Sepsis Action Taken by Nursing 04/20/25 18:05 04/20/25 18:37 04/20/25 18:51 Temperature Temperature Source Pulse Rate 74 68 Pulse Rate from SpO2 Sensor 68 Respiratory Rate 21 15 Respiratory Effort / Characteristics Respiratory Depth Blood Pressure 157/63 H Blood Pressure Mean 109 Pulse Oximetry 95 Oxygen Delivery Method Sepsis Recent Fever Within 48 Hours Sepsis New/Unexplained Change in Mental Status Sepsis Action Taken by Nursing 04/20/25 18:57 04/20/25 19:01 04/20/25 19:01 Temperature Temperature Source Pulse Rate 73 Pulse Rate from SpO2 Sensor 72 Respiratory Rate 19 Respiratory Effort / Characteristics Respiratory Depth Blood Pressure 165/68 H 165/68 H Blood Pressure Mean 79 79 Pulse Oximetry 95 Oxygen Delivery Method Sepsis Recent Fever Within 48 Hours Sepsis New/Unexplained Change in Mental Status Sepsis Action Taken by Nursing 04/20/25 19:09 04/20/25 19:30 04/20/25 19:30 Temperature Temperature Source Pulse Rate 74 74 Pulse Rate from SpO2 Sensor Respiratory Rate 16 19 Respiratory Effort / Characteristics Respiratory Depth Blood Pressure 150/59 H Blood Pressure Mean 105 Pulse Oximetry Oxygen Delivery Method Sepsis Recent Fever Within 48 Hours Sepsis New/Unexplained Change in Mental Status Sepsis Action Taken by Nursing 04/20/25 19:30 04/20/25 19:30 04/20/25 19:55 Temperature Temperature Source Pulse Rate 83 Pulse Rate from SpO2 Sensor Respiratory Rate Respiratory Effort / Characteristics Respiratory Depth Blood Pressure 150/59 H 150/59 H Blood Pressure Mean 105 105 Pulse Oximetry Oxygen Delivery Method Sepsis Recent Fever Within 48 Hours Sepsis New/Unexplained Change in Mental Status Sepsis Action Taken by Nursing 04/20/25 20:03 Temperature Temperature Source Pulse Rate 79 Pulse Rate from SpO2 Sensor Respiratory Rate 20 Respiratory Effort / Characteristics Respiratory Depth Blood Pressure Blood Pressure Mean Pulse Oximetry Oxygen Delivery Method Sepsis Recent Fever Within 48 Hours Sepsis New/Unexplained Change in Mental Status Sepsis Action Taken by Nursing Laboratory Data 04/20/25 16:00 04/20/25 16:00 Lab Results 04/20/25 04/20/25 04/20/25 Range/Units 15:49 16:00 16:18 WBC 16.78 H (4.8-10.8) K/ul RBC 5.31 (4.70-6.10) M/uL Hgb 14.2 (14.0-18.0) g/dl Hct 45.0 (42.0-52.0) % MCV 84.7 (80.0-100.0) fL MCH 26.7 (25.0-34.0) pg MCHC 31.6 L (32.0-36.0) g/dL RDW Std Deviation 46.5 H (36.4-46.3) fL RDW Coeff of Matt 15.3 H (11.5-14.5) % Plt Count 209 (130-400) K/uL MPV 10.6 (9.4-12.4) fL Immature Gran % (Auto) 0.5 % Neut % (Auto) 90.5 % Lymph % (Auto) 4.4 % [place] % (Auto) 3.9 % Eos % (Auto) 0.3 % Baso % (Auto) 0.4 % Neut # (Auto) 15.20 H (1.40-6.50) K/uL Lymph # (Auto) 0.73 L (1.20-3.40) K/uL [place] # (Auto) 0.65 H (0.11-0.59) K/uL Eos # (Auto) 0.05 (0.00-0.50) K/uL Baso # (Auto) 0.07 (0.00-0.20) K/uL Immature Gran # (Auto) 0.08 (0.01-0.20) K/uL PT 11.2 (9.0-12.0) Seconds INR 1.0 (0.9-1.1) Sodium 142 (136-145) mmol/L Potassium 3.7 (3.5-5.1) mmol/L Chloride 106 (98-107) mmol/L Carbon Dioxide 28 (21-32) mmol/L Anion Gap 8 (3-11) BUN 20 (6-23) mg/dl Creatinine 1.16 (0.6-1.4) mg/dl Est Cr Clr Drug Dosing 69.1 ml/min eGFR 64.87 BUN/Creatinine Ratio 17.2 (10-20) Glucose 38 L* (70-99(Fasting)) mg/dl POC Glucose 47 L* 46 L* (70-99) mg/dl Calcium 9.5 (8.6-10.3) mg/dl Total Bilirubin 0.4 (0.2-1.0) mg/dl AST 28 (13-39) U/L ALT 14 (7-52) U/L Alkaline Phosphatase 98 (34-104) U/L Troponin I High Sens 25.0 H (0-20) pg/ml Total Protein 7.9 (6.0-8.3) gm/dl Albumin 3.7 (3.4-5.0) gm/dl Globulin 4.2 H (2.5-4.0) gm/dl Albumin/Globulin Ratio 0.9 (0.9-2) Lipase 20 (11-82) U/L 04/20/25 04/20/25 04/20/25 Range/Units 16:52 17:24 18:18 WBC (4.8-10.8) K/ul RBC (4.70-6.10) M/uL Hgb (14.0-18.0) g/dl Hct (42.0-52.0) % MCV (80.0-100.0) fL MCH (25.0-34.0) pg MCHC (32.0-36.0) g/dL RDW Std Deviation (36.4-46.3) fL RDW Coeff of Matt (11.5-14.5) % Plt Count (130-400) K/uL MPV (9.4-12.4) fL Immature Gran % (Auto) % Neut % (Auto) % Lymph % (Auto) % [place] % (Auto) % Eos % (Auto) % Baso % (Auto) % Neut # (Auto) (1.40-6.50) K/uL Lymph # (Auto) (1.20-3.40) K/uL [place] # (Auto) (0.11-0.59) K/uL Eos # (Auto) (0.00-0.50) K/uL Baso # (Auto) (0.00-0.20) K/uL Immature Gran # (Auto) (0.01-0.20) K/uL PT (9.0-12.0) Seconds INR (0.9-1.1) Sodium (136-145) mmol/L Potassium (3.5-5.1) mmol/L Chloride (98-107) mmol/L Carbon Dioxide (21-32) mmol/L Anion Gap (3-11) BUN (6-23) mg/dl Creatinine (0.6-1.4) mg/dl Est Cr Clr Drug Dosing ml/min eGFR BUN/Creatinine Ratio (10-20) Glucose (70-99(Fasting)) mg/dl POC Glucose 131 H 83 80 (70-99) mg/dl Calcium (8.6-10.3) mg/dl Total Bilirubin (0.2-1.0) mg/dl AST (13-39) U/L ALT (7-52) U/L Alkaline Phosphatase (34-104) U/L Troponin I High Sens (0-20) pg/ml Total Protein (6.0-8.3) gm/dl Albumin (3.4-5.0) gm/dl Globulin (2.5-4.0) gm/dl Albumin/Globulin Ratio (0.9-2) Lipase (11-82) U/L 04/20/25 04/20/25 Range/Units 18:21 19:06 WBC (4.8-10.8) K/ul RBC (4.70-6.10) M/uL Hgb (14.0-18.0) g/dl Hct (42.0-52.0) % MCV (80.0-100.0) fL MCH (25.0-34.0) pg MCHC (32.0-36.0) g/dL RDW Std Deviation (36.4-46.3) fL RDW Coeff of Matt (11.5-14.5) % Plt Count (130-400) K/uL MPV (9.4-12.4) fL Immature Gran % (Auto) % Neut % (Auto) % Lymph % (Auto) % [place] % (Auto) % Eos % (Auto) % Baso % (Auto) % Neut # (Auto) (1.40-6.50) K/uL Lymph # (Auto) (1.20-3.40) K/uL [place] # (Auto) (0.11-0.59) K/uL Eos # (Auto) (0.00-0.50) K/uL Baso # (Auto) (0.00-0.20) K/uL Immature Gran # (Auto) (0.01-0.20) K/uL PT (9.0-12.0) Seconds INR (0.9-1.1) Sodium (136-145) mmol/L Potassium (3.5-5.1) mmol/L Chloride (98-107) mmol/L Carbon Dioxide (21-32) mmol/L Anion Gap (3-11) BUN (6-23) mg/dl Creatinine (0.6-1.4) mg/dl Est Cr Clr Drug Dosing ml/min eGFR BUN/Creatinine Ratio (10-20) Glucose (70-99(Fasting)) mg/dl POC Glucose 70 (70-99) mg/dl Calcium (8.6-10.3) mg/dl Total Bilirubin (0.2-1.0) mg/dl AST (13-39) U/L ALT (7-52) U/L Alkaline Phosphatase (34-104) U/L Troponin I High Sens 27.4 H (0-20) pg/ml Total Protein (6.0-8.3) gm/dl Albumin (3.4-5.0) gm/dl Globulin (2.5-4.0) gm/dl Albumin/Globulin Ratio (0.9-2) Lipase (11-82) U/L Administered Medications Dextrose (D10w) 1,000 mls @ 80 mls/hr IV .[id number] [facility] Stop: 04/23/25 17:29 Last Admin: 04/20/25 17:34 Dose: 80 mls/hr Documented By: RAKESH Dextrose (D10w) 1,000 mls @ 80 mls/hr IV .[id number] [facility] Stop: 04/23/25 19:59 Last Admin: 04/20/25 19:49 Dose: Not Given Documented By: SHAVONNE Discontinued Medications Dextrose (Dextrose 50% 50 Ml Syringe) 50 ml IV NOW ONE Stop: 04/20/25 16:30 Last Admin: 04/20/25 16:35 Dose: 50 ml Documented By: SHAVONNE Dextrose (Dextrose 50% 50 Ml Syringe) 50 ml IV NOW ONE Stop: 04/20/25 17:15 Last Admin: 04/20/25 19:33 Dose: Not Given Documented By: SHAVONNE Dextrose/Sodium Chloride (D5w And Nss) 1,000 mls @ 80 mls/hr IV .[id number] [facility] Stop: 04/23/25 17:14 Last Admin: 04/20/25 19:45 Dose: Not Given Documented By: NANCI Imaging Data Radiologist's Impression: Lumbar Spine CT 04/20/25 16:29 CT lumbar spine without contrast Technique: Noncontrast axial images of the lumbar spine. Coronal and sagittal reformatted images made available for review. No comparison Findings: Vertebral bodies are normal in height and alignment without fracture or dislocation. 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 A at L3-4 there are facet and ligamentous hypertrophic changes superimposed upon broad-based posterior disc bulge resulting in mild canal and mild bilateral foraminal narrowing. Impression: 0.7 cm disc herniation at L4-5 resulting in mild canal stenosis. MRI recommended for further evaluation. Electronically signed by Seb Bello 04-20-2025 8:[address] 04/20/25 17:20 EXAM: CT thoracic spine wo con CLINICAL HISTORY: Back pain s/p fall. TECHNIQUE: CT scan of the thoracic spine was performed without the administration of intravenous contrast. Contiguous axial images were obtained from the upper thoracic spine to the lower thoracic spine. Coronal and sagittal reformatted images were also reviewed. One of the following dose reduction techniques was utilized for this exam. Automated exposure control, adjustment of the mA and/or kV according to patient size, and use of iterative reconstruction. COMPARISON: No previous studies are available for comparison. FINDINGS: Vertebrae: Decreased bone density. Slightly exaggerated thoracic kyphosis. Maintained vertebral body heights. No evidence of acute fracture or dislocation. No signs of lytic or sclerotic lesions. Normal configuration of the posterior elements. Intervertebral Discs: Multilevel disc space narrowing with calcification/ossification across the thoracic intervertebral discs. Facet Joints: The facet joints are normal without evidence of dislocation, subluxation, or significant degenerative changes. Multilevel calcification/ossification of the ligamenta flava especially at the lower thoracic region. Neural Foramina: The neural foramina are patent bilaterally at all levels. No evidence of foraminal narrowing or nerve root compression. Paraspinal Soft Tissues: The paraspinal soft tissues are normal in appearance without evidence of mass or abnormal fluid collection. Additional Findings: Vascular calcification of the aorta. IMPRESSION: 1. Decreased bone density. 2. Spine degenerative changes. 3. No evidence of acute displaced fractures or dislocation. 4. Correlate with clinical findings. Electronically signed by Aj Marcelo 04-20-2025 8:34 PM Discharge Plan Visit Data Chief Complaint: Hypoglycemia Stated Complaint: OVERDOSE ED Provider: Perri Bella Discharge Problem: Acute confusion, Hypoglycemia, Elevated troponin Condition: Fair Forms Stand Alone Forms: My [facility] [place] [employer] Prescriptions Prescriptions: No Action trazodone 50 mg Tablet 50 mg PO HS Qty: 0 escitalopram oxalate 20 mg Tablet 10 mg PO QAM Qty: 0 rosuvastatin [Crestor] 5 mg Tablet 5 mg PO QPM Qty: 0 aspirin [Lucia Low Dose Aspirin] 81 mg Tablet,Delayed Release (Dr/Ec) 81 mg PO QAM Qty: 0 multivitamin Tablet 1 tab PO QAM omeprazole 20 mg Capsule,Delayed Release(Dr/Ec) 20 mg PO .EVERY OTHER DAY doxazosin 2 mg Tablet 2 mg PO QPM ezetimibe [Zetia] 10 mg Tablet 10 mg PO QAM metformin 1,000 mg Tablet See Rx Instructions .ROUTE .COMPLEX Rx Instructions: Take 1000mg by mouth in the morning and 1500mg by mouth at bedtime insulin lispro [Humalog U-100 Insulin] 100 unit/mL Solution 1 sliding scale dose SUBCUT USEASDIRECTD Patient Comments: DEPENDS ON CARBOHYDRATES THAT IM EATING - BLOOD SURGARS CHECK EVERY MEAL gabapentin 100 mg Capsule 200 mg PO QPM losartan-hydrochlorothiazide 100-12.5 mg Tablet 1 tab PO QAM insulin glargine [Lantus Solostar U-100 Insulin] 100 unit/mL (3 mL) insulin pen 55 unit SUBCUT QAM Tremfya 100 mg/mL auto-injector 100 mg SUBCUT .[id number] azithromycin 250 mg tablet See Rx Instructions .ROUTE .COMPLEX Qty: 6 0RF Rx Instructions: take 500 mg today (day 1), then 250 mg for 4 days (days 2-5) Referrals Referrals: Nato Barrientos MD [Primary Care Provider] -
[2025-04-20] MEDS: DEXTROSE 50% 50 ML SYRINGE IV ONE ×2 (16:35→19:33)
[2025-04-20 16:52] LABS: Hematocrit (blood only) 45.0 % (42.0-52.0); Hemoglobin 14.2 g/dl (14.0-18.0); Mean Corpuscular Hemoglobin 26.7 pg (25.0-34.0); Mean Corpuscular Volume 84.7 fL (80.0-100.0); Platelet Count 209 K/uL (130-400); RDW Standard Deviation 46.5 fL (36.4-46.3); Red Blood Count 5.31 M/uL (4.70-6.10); White Blood Count 16.78 K/ul (4.8-10.8)
[2025-04-20 17:07] LABS: Alanine Aminotransferase 14.0 U/L (7-52); Albumin Globulin Ratio 0.9 (0.9-2); Alkaline Phosphatase 98.0 U/L (34-104); Anion Gap 8.0 (3-11); Bilirubin,Total 0.4 mg/dl (0.2-1.0); Blood Urea Nitrogen 20.0 mg/dl (6-23); Calcium 9.5 mg/dl (8.6-10.3); Carbon Dioxide 28.0 mmol/L (21-32); Chloride 106.0 mmol/L (98-107); Creatinine Clr Calc Pharmacy 69.1 ml/min; Globulin 4.2 gm/dl (2.5-4.0); Glucose 38.0 mg/dl (70-99(Fasting)); Lipase 20.0 U/L (11-82); Potassium 3.7 mmol/L (3.5-5.1); Sodium 142.0 mmol/L (136-145); Total Protein 7.9 gm/dl (6.0-8.3)
[2025-04-20 17:21] LABS: INR 1.0 (0.9-1.1); Prothrombin Time 11.2 Seconds (9.0-12.0)
[2025-04-20 17:30] LABS: Immature Granulocytes # (auto) 0.08 K/uL (0.01-0.20); Immature Granulocytes % (auto) 0.5 %
[2025-04-20] MEDS: DEXTROSE 10% 1,000 ML IV SCH ×2 (17:34→19:49)
[2025-04-20] MEDS: D5W AND NSS 1,000 ML IV SCH (19:45)
--- NOTE | 2025-04-20 20:34 | CT Scan Report ---
EXAM: CT thoracic spine wo con CLINICAL HISTORY: Back pain s/p fall. TECHNIQUE: CT scan of the thoracic spine was performed without the administration of intravenous contrast. Contiguous axial images were obtained from the upper thoracic spine to the lower thoracic spine. Coronal and sagittal reformatted images were also reviewed. One of the following dose reduction techniques was utilized for this exam. Automated exposure control, adjustment of the mA and/or kV according to patient size, and use of iterative reconstruction. COMPARISON: No previous studies are available for comparison. FINDINGS: Vertebrae: Decreased bone density. Slightly exaggerated thoracic kyphosis. Maintained vertebral body heights. No evidence of acute fracture or dislocation. No signs of lytic or sclerotic lesions. Normal configuration of the posterior elements. Intervertebral Discs: Multilevel disc space narrowing with calcification/ossification across the thoracic intervertebral discs. Facet Joints: The facet joints are normal without evidence of dislocation, subluxation, or significant degenerative changes. Multilevel calcification/ossification of the ligamenta flava especially at the lower thoracic region. Neural Foramina: The neural foramina are patent bilaterally at all levels. No evidence of foraminal narrowing or nerve root compression. Paraspinal Soft Tissues: The paraspinal soft tissues are normal in appearance without evidence of mass or abnormal fluid collection. Additional Findings: Vascular calcification of the aorta. IMPRESSION: 1. Decreased bone density. 2. Spine degenerative changes. 3. No evidence of acute displaced fractures or dislocation. 4. Correlate with clinical findings. Electronically signed by Marcelo Rocha 04-20-2025 8:34 PM
--- NOTE | 2025-04-20 20:47 | CT Scan Report ---
CT lumbar spine without contrast Technique: Noncontrast axial images of the lumbar spine. Coronal and sagittal reformatted images made available for review. No comparison Findings: Vertebral bodies are normal in height and alignment without fracture or dislocation. 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 A at L3-4 there are facet and ligamentous hypertrophic changes superimposed upon broad-based posterior disc bulge resulting in mild canal and mild bilateral foraminal narrowing. Impression: 0.7 cm disc herniation at L4-5 resulting in mild canal stenosis. MRI recommended for further evaluation. Electronically signed by Seb Bello 04-20-2025 8:46 PM
--- NOTE | 2025-04-20 20:51 | History & Physical Report ---
Date of Service April 20, 2025 Assessment & Plan (1) Hypoglycemia: (2) Elevated troponin: (3) Fall: (4) Cervical disc herniation: Plan Patient is a 79-year-old male with past medical history of type II DM on insulin, HTN, HLD, GERD, psoriasis. Patient presented via EMS after found to be hypoglycemic, confused, and had a fall. Glucose 38 in ED, improved to 131 after D50 x 1, 1L D10. Glucose then dropped to 78 and patient was started on D10 at 80 mL/hr. #hypoglycemia after reportedly using 46U Humalog at home after glucose 425, glucose then dropped to 38. With type II DM on insulin and Zepbound (1st dose 04/18). Renal function stable. - unclear as to why patient with hyperglycemia AM 04/20 Uses 48 units Lantus in the morning, did have a.m. 04/20; will hold for now Sliding scale insulin at home, hold until glucose greater than 200 Every hour glucose checks until glucose 200, then discontinue D10 and transition to every 2 hour Pharmacy glycemic consult #Elevated troponin trop 25.0 -> 27.4. patient denies any chest pain. EKG shows NSR without ischemic changes. Likely elevated to demand with event above. Trend every 6 hours Monitor on telemetry #Fall/back pain patient with right-sided back pain. Lumbar spine CT showed 0.7 cm disc herniation at L4-L5 level resulting in mild canal stenosis, recommend MRI. 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 Patient presented via EMS after found to be hypoglycemic, confused, and had a fall. Glucose 38 in ED, improved to 131 after D50 x 1, 1L D10. Glucose then dropped to 78 and patient was started on D10 at 80 mL/hr. Patient seen at bedside. He stated that this morning he took his Lantus insulin which is 48 units in the morning as usual and drink 2 cups of coffee. He then used 20 units of Humalog which he typically does with his morning coffee and checked his glucose which was 425. Patient does not remember much after that however stated that his told him she thinks he used approximately 26 units additional Humalog. Later in the morning patient was then having confusion and could not get his car into the garage and then had a fall while he was in the shower back into his tub hurting his back, denies any head strike, not on any blood thinners. He did eat some casserole for lunch. Currently he states that it hurts to take a deep breath because of his back pain. He denies any dizziness, lightheadedness, chest pain, shortness of breath. Denies nicotine or alcohol use. Did take all of his morning medications as usual. Is on insulin and Zepbound (injections on Tuesdays), no longer on metformin. He wishes to be full code. Allergies Allergy/AdvReac Type Severity Reaction Status Date / Time methotrexate Allergy Unknown "GOT GOOFY" Verified 04/20/25 21:16 streptomycin Allergy Unknown REMOTE HX Verified 04/20/25 21:16 - PT NOT SURE Sulfa (Sulfonamide Allergy Unknown ALTERED Verified 04/20/25 21:16 Antibiotics) KIDNEY FUNCTION tamsulosin AdvReac Unknown Diarrhea Verified 04/20/25 21:16 Home Medications Medication Instructions Recorded Confirmed Type aspirin 81 mg tablet,delayed 81 mg PO QAM ##0 11/03/14 04/20/25 History release (Lucia Low Dose Aspirin) rosuvastatin 5 mg tablet (Crestor) 5 mg PO QPM ##0 11/03/14 04/20/25 History trazodone 50 mg tablet 50 mg PO HS ##0 11/03/14 04/20/25 History doxazosin 2 mg tablet 2 mg PO QPM 03/15/20 04/20/25 History ezetimibe 10 mg tablet (Zetia) 10 mg PO QAM 03/15/20 04/20/25 History insulin lispro 100 unit/mL 1 sliding scale dose subcut 03/15/20 04/20/25 History subcutaneous solution (Humalog USEASDIRECTD U-100 Insulin) multivitamin 1 tab PO QAM 03/15/20 04/20/25 History gabapentin 100 mg capsule 200 mg PO QPM 04/20/20 04/20/25 History losartan 100 1 tab PO QPM 04/20/20 04/20/25 History mg-hydrochlorothiazide 12.5 mg tablet guselkumab 100 mg/mL subcutaneous 100 mg subcut .[id number] 11/16/23 04/20/25 History auto-injector (Tremfya) insulin glargine 100 unit/mL (3 48 unit subcut QAM 11/16/23 04/20/25 History mL) subcutaneous pen (Lantus Solostar U-100 Insulin) omeprazole 20 mg capsule,delayed 20 mg PO Q OTHER DAY 04/20/25 04/20/25 History release tirzepatide (weight loss) 2.5 2.5 mg subcut WK 04/20/25 04/20/25 History mg/0.5 mL subcutaneous pen injector (Zepbound) Past Med/Surg History Problem List (Updated 04/20/25 @ 21:08 by Yas Bustamante PA-C) Cervical disc herniation Fall Elevated troponin (Acute) Hypoglycemia (Acute) Acute confusion (Acute) Chest pain Lab test negative for COVID-19 virus (Acute) Nausea (Acute) Diabetes (Acute) SOB (shortness of breath) (Acute) DVT prophylaxis GERD (gastroesophageal reflux disease) Hyperlipidemia Psoriasis DM type 2 (diabetes mellitus, type 2) Leukocytosis Chest pressure (Acute) Medical History (Updated 04/20/25 @ 21:08 by Yas Bustamante PA-C) Heartburn HX RECENT HOSPITALIZATION WITHIN LAST MONTH - [facility] - SOB, CHEST TIGHTNESS/- CARDIAC TESTING DONE WHILE IN PT - NO CATH - DX HEARTBURN Psoriasis High cholesterol Neuropathy TOES HTN (hypertension) Acid reflux Depression Surgical History History of colonoscopy History of surgery FINGER Family History Father Myocardial infarction hx of bypass Mother Family history of diabetes mellitus Social History Smoking Status: Former smoker Tobacco Type: Cigarettes Do You Dip or Chew Tobacco: No; Hx Alcohol Use: Yes Alcohol type: hard liquor Alcohol Intake Frequency Comment: once a month Hx Substance Use: No Preferred Language: [place] Verdean Communication Ability: Effective 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 Non-toxic appearing. HEENT- EOMI, mucous membranes moist. Hearing grossly intact. Heart-normal S1 and S2. No murmurs, rubs or gallops. Lungs-clear bilaterally, no respiratory distress, no accessory muscle use. Abdomen-normal bowel sounds and soft. No ascites noted. Non-tender. Extremities- no clubbing, cyanosis, or edema. Rheumatologic-normal range of motion. Psychiatric-normal affect. Musculoskeletal: no tenderness to palpation of spine Results & Data Results & Data Vital Signs (Past 12 Hours) Vital Signs Temp Pulse Resp BP Pulse Ox O2 Del Method 04/20/25 20:03 79 20 04/20/25 19:55 83 04/20/25 19:30 150/59 H 04/20/25 19:30 150/59 H 04/20/25 19:30 150/59 H 04/20/25 19:30 74 19 04/20/25 19:09 74 16 04/20/25 19:01 165/68 H 04/20/25 19:01 165/68 H 04/20/25 18:57 73 19 95 04/20/25 18:51 68 15 95 04/20/25 18:37 157/63 H 04/20/25 18:05 74 21 04/20/25 17:35 70 25 H 04/20/25 17:08 76 17 04/20/25 17:01 155/66 H 04/20/25 16:53 73 14 04/20/25 16:50 73 21 04/20/25 16:31 180/72 H 04/20/25 16:29 75 20 95 Room Air 04/20/25 16:26 84 24 04/20/25 16:05 74 04/20/25 16:00 76 20 04/20/25 16:00 192/116 H 04/20/25 16:00 192/116 H 04/20/25 16:00 192/116 H 04/20/25 15:59 82 20 04/20/25 15:50 36.8 C 77 20 158/104 H 97 Room Air Laboratory Results Reviewed CBC, PT/INR, CMP, troponin, lipase Diagnostic Findings reviewed Thoracic spine CT and lumbar spine CT Medications Administered EMSunknown level of D10 ed - D50 x 1, reportedly 1L D10, D10 at 80 mL/hour ECG Additional Comments: NSR, no ischemic changes Rate 73 QTc 436 Code Status & VTE Plan Code Status full code VTE Prophylaxis Plan VTE Prophylaxis will be ordered: Yes Supervising Physician Co-Signing Physician Notes Attending addendum: I have physically seen this patient, have supervised the ADAMS's activities, and agree with the H&P unless as otherwise noted. Assessment and Plan: The patient is a 79-year-old male with a past medical history including diabetes mellitus type 2 on insulin, hypertension, hyperlipidemia, GERD, history of acute renal failure, insomnia, and psoriasis. He presents to the emergency department with report of an initial elevated glucose of over 400, for which he took his usual Humalog 20 dose. His glucose was still over 400 30minutes later, and he reports that he took an additional 20 units of Humalog at that time. He then became more confused, and was found to have glucose in the 30s to 40s, and had a fall, but denies any head injury. In the emergency department, glucose ranged from 47 to a high of 131 and then returned again to 70, despite being given D10 of unknown volume prehospital, D50 1 amp in the ED, 1 L of D10 at 80 mL/h, and was then started on additional D10 at 80 mL/h. The patient was then referred for evaluation for admission. Persistent hypoglycemia- Patient administered Humalog 20 units subcu x 2, and became hypoglycemic with glucose down to 38. He received D10 unknown volume by EMS en route to the hospital. In the emergency department he received 1 amp of D50, 1 L of D10 running at 80 mL/h, and presently is on D10 at 80 mL/h. Patient will admitted to a monitored bed Holding Lantus 48 units subcu in the a.m., with last dose 04/19 1 AM Will check glucose levels every hour until above 200, and then stop the D10, and place on Accu-Cheks at 2-hour intervals. Pharmacy glycemic consult Elevated troponin/hypertension- Initial troponin was 25.0 with follow-up 27.4, will follow sequentially per protocol hold losartan/HCTZ for now Continue doxazosin Fall/mild back pain- CT scan thoracic spine negative CT scan lumbar spine showed 0.7 cm disc herniation at L4-L5 resulting in mild canal stenosis with recommendation for MRI Lidoderm patch Hyperlipidemia- Continue aspirin, rosuvastatin and Zetia Psoriasis- Reports having recently started Zepbound 2 days ago PG Care Time/CCT Total # of Minutes Spent Total Time Spent with Patient: Total time spent is greater than 50% in coordination of care (as documented) at patient's floor/unit and/or counseling patient: Coding Level of Care Code 11125 INT INP/OBS CARE 3/75MIN Diagnoses Hypoglycemia E16.2 Elevated troponin R79.89 Fall W19.XXXA Cervical disc herniation M50.20
[2025-04-20] MEDS: ACETAMINOPHEN 1,000 MG/100 ML VIAL IV STA (21:06)
[2025-04-20] MEDS: LIDOCAINE 5% 1 PATCH TD STA (21:19)
[2025-04-20] MEDS ORDERED: GLUCOSE 10 TAB/TUBE PO PRN (22:59)
[2025-04-20] MEDS ORDERED: CARBOHYDRATES FOR HYPOGLYCEMIA PO PRN (22:59)
[2025-04-20] MEDS ORDERED: MELATONIN 3 MG TAB PO PRN (22:59)
[2025-04-20] MEDS ORDERED: GLUCOSE 40% GEL 15 GM TUBE PO PRN (22:59)
[2025-04-20] MEDS ORDERED: PHARMACY GLYCEMIC MGMT CONSULT PRN (22:59)
[2025-04-20] MEDS ORDERED: DOCUSATE SODIUM 100 MG CAP PO PRN (22:59)
[2025-04-20] MEDS ORDERED: GLUCAGON FOR INJ 1 MG VIAL SQ PRN (22:59)
[2025-04-20] MEDS ORDERED: ACETAMINOPHEN 325 MG TAB PO PRN (22:59)
[2025-04-20] MEDS ORDERED: DEXTROSE 50% 50 ML SYRINGE IV PRN (22:59)
[2025-04-20] MEDS ORDERED: ONDANSETRON INJ 2 MG/ML 2 ML VIAL IV PRN (22:59)
[2025-04-21] MEDS: GABAPENTIN 100 MG CAP PO SCH (00:30)
[2025-04-21] MEDS: ROSUVASTATIN CALCIUM 5 MG TAB PO SCH (00:30)
[2025-04-21] MEDS: DOXAZosin MESYLATE TAB 2 MG TAB PO SCH (00:54)
[2025-04-21 07:03] LABS: Hematocrit (blood only) 40.0 % (42.0-52.0); Hemoglobin 12.8 g/dl (14.0-18.0); Immature Granulocytes # (auto) 0.04 K/uL (0.01-0.20); Immature Granulocytes % (auto) 0.4 %; Mean Corpuscular Hemoglobin 27.1 pg (25.0-34.0); Mean Corpuscular Volume 84.7 fL (80.0-100.0); Platelet Count 154 K/uL (130-400); RDW Standard Deviation 46.2 fL (36.4-46.3); Red Blood Count 4.72 M/uL (4.70-6.10); White Blood Count 9.85 K/ul (4.8-10.8)
[2025-04-21 07:25] LABS: Alanine Aminotransferase 9.0 U/L (7-52); Albumin Globulin Ratio 1.0 (0.9-2); Alkaline Phosphatase 79.0 U/L (34-104); Anion Gap 7.0 (3-11); Bilirubin,Total 0.4 mg/dl (0.2-1.0); Blood Urea Nitrogen 19.0 mg/dl (6-23); Calcium 8.6 mg/dl (8.6-10.3); Carbon Dioxide 28.0 mmol/L (21-32); Chloride 104.0 mmol/L (98-107); Creatinine Clr Calc Pharmacy 78.6 ml/min; Globulin 3.3 gm/dl (2.5-4.0); Glucose 174.0 mg/dl (70-99(Fasting)); Magnesium 1.7 mg/dl (1.7-2.4); Potassium 3.8 mmol/L (3.5-5.1); Sodium 139.0 mmol/L (136-145); Total Protein 6.6 gm/dl (6.0-8.3)
[2025-04-21 07:47] LABS: Hemoglobin A1C 7.2 % (4.5-5.6)
[2025-04-21] MEDS: ASPIRIN 81 MG ECTAB PO SCH (08:16)
[2025-04-21] MEDS: ESCITALOPRAM OXALATE 10 MG TAB PO SCH (08:16)
[2025-04-21] MEDS: EZETIMIBE 10 MG TAB PO SCH (08:16)
[2025-04-21] MEDS: REMOVE LIDODERM PATCH ONE (08:19)
[2025-04-21] MEDS: INSULIN ASPART PER UNIT CHARGE SC SCH (10:04)
--- NOTE | 2025-04-21 15:25 | Pharmacy Report ---
Pharmacy Glycemic Short Note 2 - Date of Service April 21, 2025 - Glycemic Short BSG Results (Last 24 hours): 04/20/25 04/20/25 04/20/25 15:49 16:00 16:18 Glucose 38 L* POC Glucose 47 L* 46 L* 04/20/25 04/20/25 04/20/25 16:52 17:24 18:18 Glucose POC Glucose 131 H 83 80 04/20/25 04/20/25 04/20/25 19:06 22:37 23:24 Glucose POC Glucose 70 137 H 132 H 04/21/25 04/21/25 04/21/25 00:33 01:29 02:37 Glucose POC Glucose 139 H 146 H 184 H 04/21/25 04/21/25 04/21/25 03:24 04:44 05:32 Glucose POC Glucose 163 H 169 H 164 H 04/21/25 04/21/25 04/21/25 06:35 06:40 07:33 Glucose 174 H POC Glucose 173 H 150 H 04/21/25 04/21/25 08:32 12:21 Glucose POC Glucose 173 H 134 H OUTPATIENT ANTIDIABETIC REGIMEN: * Lantus 48 units daily, humalog SSI, tirzepatide 2.5 mg SQ weekly ASSESSMENT: * 79 year old admitted with hypoglycemia/fall. Type 2 diabetic - pharmacy consulted for glycemic management. Per notes, patient took his usual basal dose yesterday AM of Lantus 48 units and took 20 units of Humalog. Checked his blood sugar and it was 425 mg/dL. Potentially took another 26 units of Humalog and was later having confusion and had a fall. BSG in ED ~38 mg/dL - improving with dextrose. D10 infusion started and continued this AM. * No further insulin was given yesterday - BSGs this AM stable 170s. * Discussed with provider, and d/c D10 infusion this morning. Initiated novolog at low dose SSI for this AM. * Would have anticipated blood sugars to be a lot higher this morning with continuous D10 infusion - will be conservative and add on scale for basal at HS, but likely could titrate up further to home dose tomorrow. PLAN FOR INPATIENT GLYCEMIC CONTROL: * Hold outpatient oral diabetes medications * Basal insulin * Lantus 0-10 units HS * Bolus insulin * NovoLog per scale ACHS or Q6hrs while NPO * Goal Range: Low 140 mg/dL - High 180 mg/dL * Correction Factor: 20 mg/dL/unit * Nutritional / Prandial insulin per carb ratio of 1 unit per 12 grams CHO consumed
--- NOTE | 2025-04-21 18:21 | XRay Report ---
Clinical History: Pain. 3 views of the right scapula are submitted for review. Findings: No fracture or dislocation is seen. There is mild acromioclavicular osteoarthritis. No other osseous abnormality is identified. There are no radiopaque foreign bodies. Impression: 1. No definite fracture 2. Mild acromioclavicular osteoarthritis Electronically signed by Mikhail Rahman 04-21-2025 6:21 PM
--- NOTE | 2025-04-21 18:40 | XRay Report ---
Clinical History: Pain Technique: 5 views of the chest and ribs obtained Findings: There are no confluent pulmonary infiltrates. The heart is enlarged. No pleural effusion or pneumothorax is seen. There is a suspected prominent pericardial fat pad in the right cardiophrenic angle No fracture is noted. No foreign body is seen Impression: 1. No definite rib fracture 2. Cardiomegaly 3. Suspected prominent pericardial fat-pad in the right cardiophrenic angle Electronically signed by Mikhail Rahman 04-21-2025 6:39 PM
--- NOTE | 2025-04-21 19:09 | Hospitalist Progress Note ---
Date of Service April 21, 2025 Assessment & Plan (1) Hypoglycemia: (2) Elevated troponin: (3) Fall: (4) Acute metabolic encephalopathy due to hypoglycemia: (5) GERD (gastroesophageal reflux disease): (6) Hyperlipidemia: (7) Psoriasis: (8) DM type 2 (diabetes mellitus, type 2): Plan 79yo male with type II DM on insulin, HTN, Hyperlipidemia, GERD, psoriasis. Presented via EMS after found to be hypoglycemic, confused, and had a fall. Glucose 38 in ED, improved to 131 after D50 x 1, 1L D10W fluid. Glucose then dropped to 78 and patient was started on D10 at 80 mL/hr. Patient reports he was started on "Zepbound" recently as outpatient which is a GLP-1 agonist. #hypoglycemia -severe, <40 upon ER presentation -apparently he was hyperglycemic yesterday morning, >400, with no specific etiology for such (no dietary indiscretion, etc); he told me today he rarely is >300 at home -there is confusion about how much humalog he took to correct for the high sugar - 26 units? -yesterday am, 04/20, he had his typical lantus of 48 units as well -I believe he simply over-corrected with the humalog (and had his usual lantus, and was started on Zepbound this week) -suspect he is now taking too much insulin at home in the setting of being on the recently added Zepbound -further, his T2DM is well-controlled as evidenced by a1c of 7.2% -D10W drip now d/c -pharmacy glycemic team is managiny his DM -he is requiring VERY LITTLE novolog despite eating well -suspect at discharge he will need significantly reduced doses of lantus & humalog - especially given the recent Zepbound addition -follow BSGs overnight for stability -I cannot find any other reason for the hypoglycemia (no ACS, no infectious issues, no evidence of adrenal insufficiency, etc) #acute metabolic encephalopathy - -suspect 2nd to severe hypoglycemia -resolved, has not recurred #Elevated troponin trop 25.0 -> 27.4 -no ischemic symptoms -EKG without ischemic signs/ST Changes -telemetry normal to date -suspect the minimally elevated troponin was due to myocardial demand ischemia in the setting of his severe hypoglycemia & fall -defer on echo, etc for the minimally elevated troponin #Fall/back pain -suspect fall was due to the severe hypoglycemia -neuro exam is normal today; 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 (no TIA, etc) -t-spine CT without fracture -l-spine CT without fracture; does have herniated disc at L4-L5 HOWEVER he is having NO low back pain and NO radicular symptoms in either leg; thus, I do not believe the disc herniation at L4-L5 is acute -main complaint today is right upper back pain near the right lower ribs & scapula -check right-sided rib series and right scapular x-rays -- negative for obvious fracture -thus, his pain is likely contusion from the fall -oxy prn pain -tylenol prn pain -add voltaren gel 4gm QID to this region -lidoderm patches #HTN - -cont to hold losartan-HCTZ for now -K, Mag, and Creatinine all wnl #Hyperlipidemia - -continue asa, statin, and Zetia #mental health - -continue escitalopram -continue trazodone #BPH - -cont alpha jasper #leukocytosis - -resolved without antibiotic therapy -no infectious source by history or on exam -suspect was stress response due to severe hypoglycemia -follow carefully for signs/symptoms of any infection left message for pt's on their answering machine watch overnight anticipate d/c home on 04/22 if BSGs are stable overnight Admission and Anticipated Discharge Date Admission Date: April 20, 2025 Subjective tele overnight wnl patient feeling well only complaint is that of right upper back pain which started after his fall at home when he takes a deep breath, moves the right arm, etc he has pain in the same location (right upper back) patient again recounts that his BSG was in the mid 400s yesterday morning this happened after not eating but only drinking 2 cups of black coffee he wears a CGM but he did not check the BSG reading on the CGM; the reading was from a fingerstick blood sugar he subsequently went to [employer] and felt unsteady on his feet while there yesterday am, in response to the BSG in the mid 400s, he took more humalog than typical - about 26 units he states that typically that amount of insulin, if given for a BSG that high, would bring him into the 100s only (now the 40s as he was) only new med recently was addition of Zepbound this is a GLP-1 agonist denies any recent illnesses denies chest pain denies dyspnea denies focal motor weakness despite l-spine CT showing L4-L5 herniated disc he denies lumbar back pain and denies any radicular symptoms of legs eating well today drinking well today steady on feet today Review of Systems Review of Systems: gen - no fevers or chills neuro - no headache, no paresthesias (he has chronic tingling of hands/feet only), no focal motor weakness cv - no cp pulm - no dyspnea GI - no abd pain or N/V Physical Exam Physical Exam: gen - sitting at side of bed, NAD, looks well mouth - MMM neck - no JVD heart - RRR, s1 s2, no murmur lungs - CTA b/l abd - soft NT ND BS+ ext - no edema, pulses 2+ b/l feet neuro - no facial droop; strength 5/5 x 4 exts musculo - no tenderness along the c-spine, t-spine or l-spine to palpation; paraspinal muscle tenderness upper back on right; question small bruise mid- thoracic region on right; tender along scapula on right to palpation as well as right posterior lower ribs; no tenderness with passive ROM of right shoulder; no anterior chest wall pain on right; no clavicular abnormalities Results & Data Results & Data Vital Signs (Past 12 Hours) Vital Signs Temp Pulse Pulse Resp BP Pulse Ox O2 Del Method 04/21/25 18:16 70 04/21/25 15:09 37.1 C 91 H 18 149/65 H 93 Room Air 04/21/25 11:53 36.9 C 67 18 137/56 L 94 Room Air 04/21/25 07:39 36.9 C 66 18 160/67 H 94 Room Air 04/21/25 07:16 65 Laboratory Results Laboratory Results - last 24 hr 04/21/25 04/21/25 04/21/25 04:44 05:32 06:35 WBC RBC Hgb Hct MCV MCH MCHC RDW Std Deviation RDW Coeff of Matt Plt Count MPV Immature Gran % (Auto) Neut % (Auto) Lymph % (Auto) [place] % (Auto) Eos % (Auto) Baso % (Auto) Neut # (Auto) Lymph # (Auto) [place] # (Auto) Eos # (Auto) Baso # (Auto) Immature Gran # (Auto) Sodium Potassium Chloride Carbon Dioxide Anion Gap BUN Creatinine Est Cr Clr Drug Dosing eGFR BUN/Creatinine Ratio Glucose POC Glucose 169 H 164 H 173 H Estimat Average Glucose Hemoglobin A1c Calcium Phosphorus Magnesium Total Bilirubin AST ALT Alkaline Phosphatase Troponin I High Sens Total Protein Albumin Globulin Albumin/Globulin Ratio 04/21/25 04/21/25 04/21/25 06:40 07:33 08:32 WBC 9.85 RBC 4.72 Hgb 12.8 L Hct 40.0 L MCV 84.7 MCH 27.1 MCHC 32.0 RDW Std Deviation 46.2 RDW Coeff of Matt 15.2 H Plt Count 154 MPV 10.3 Immature Gran % (Auto) 0.4 Neut % (Auto) 74.0 Lymph % (Auto) 10.8 [place] % (Auto) 7.3 Eos % (Auto) 6.9 Baso % (Auto) 0.6 Neut # (Auto) 7.29 H Lymph # (Auto) 1.06 L [place] # (Auto) 0.72 H Eos # (Auto) 0.68 H Baso # (Auto) 0.06 Immature Gran # (Auto) 0.04 Sodium 139 Potassium 3.8 Chloride 104 Carbon Dioxide 28 Anion Gap 7 BUN 19 Creatinine 1.01 Est Cr Clr Drug Dosing 78.6 eGFR 76.60 BUN/Creatinine Ratio 18.8 Glucose 174 H POC Glucose 150 H 173 H Estimat Average Glucose 160 Hemoglobin A1c 7.2 H Calcium 8.6 Phosphorus 2.9 Magnesium 1.7 Total Bilirubin 0.4 AST 20 ALT 9 Alkaline Phosphatase 79 Troponin I High Sens 20.8 H Total Protein 6.6 Albumin 3.3 L Globulin 3.3 Albumin/Globulin Ratio 1.0 04/21/25 04/21/25 04/21/25 12:21 12:32 17:19 WBC RBC Hgb Hct MCV MCH MCHC RDW Std Deviation RDW Coeff of Matt Plt Count MPV Immature Gran % (Auto) Neut % (Auto) Lymph % (Auto) [place] % (Auto) Eos % (Auto) Baso % (Auto) Neut # (Auto) Lymph # (Auto) [place] # (Auto) Eos # (Auto) Baso # (Auto) Immature Gran # (Auto) Sodium Potassium Chloride Carbon Dioxide Anion Gap BUN Creatinine Est Cr Clr Drug Dosing eGFR BUN/Creatinine Ratio Glucose POC Glucose 134 H 98 Estimat Average Glucose Hemoglobin A1c Calcium Phosphorus Magnesium Total Bilirubin AST ALT Alkaline Phosphatase Troponin I High Sens 16.6 D Total Protein Albumin Globulin Albumin/Globulin Ratio Diagnostic Findings Scapula X-Ray 04/21/25 17:00 Clinical History: Pain. 3 views of the right scapula are submitted for review. Findings: No fracture or dislocation is seen. There is mild acromioclavicular osteoarthritis. No other osseous abnormality is identified. There are no radiopaque foreign bodies. Impression: 1. No definite fracture 2. Mild acromioclavicular osteoarthritis Electronically signed by Mikhail Rahman 04-21-2025 6:21 PM Ribs w/Chest X-Ray 04/21/25 17:01 Clinical History: Pain Technique: 5 views of the chest and ribs obtained Findings: There are no confluent pulmonary infiltrates. The heart is enlarged. No pleural effusion or pneumothorax is seen. There is a suspected prominent pericardial fat pad in the right cardiophrenic angle No fracture is noted. No foreign body is seen Impression: 1. No definite rib fracture 2. Cardiomegaly 3. Suspected prominent pericardial fat-pad in the right cardiophrenic angle Electronically signed by Mikhail Rahman 04-21-2025 6:39 PM PG Care Time/CCT Total # of Minutes Spent Total Time Spent with Patient: Total time spent is greater than 50% in coordination of care (as documented) at patient's floor/unit and/or counseling patient: Coding Level of Care Code 54579 SUB INP/OBS CARE 3/50MIN Diagnoses Hypoglycemia E16.2 Elevated troponin R79.89 Fall W19.XXXA Acute metabolic encephalopathy due to hypoglycemia G93.41; E16.2 GERD (gastroesophageal reflux disease) K21.9 Hyperlipidemia E78.5 Psoriasis L40.9 DM type 2 (diabetes mellitus, type 2) E11.9
[2025-04-21] MEDS: LIDOCAINE 5% 1 PATCH TD SCH (21:10)
[2025-04-21] MEDS: LANTUS PER UNIT CHARGE SC SCH (21:12)
[2025-04-21] MEDS: DICLOFENAC SOD 1% GEL 100 GM TUBE EXT SCH (21:19)
--- NOTE | 2025-04-21 22:54 | Electrocardiogram Report ---
Test Reason : Blood Pressure : */* mmHG Vent. Rate : 73 BPM Atrial Rate : 73 BPM P-R Int : 204 ms QRS Dur : 92 ms QT Int : 396 ms P-R-T Axes : 43 23 44 degrees QTcB Int : 436 ms Normal sinus rhythm Possible Left atrial enlargement Borderline ECG When compared with ECG of 16-Nov-2023 14:04, No significant change was found Confirmed by Saturnino Ham ([id number]) on 04/21/2025 10:54:01 PM Referred By: REFERRED SELF Confirmed By: Saturnino Ham
[2025-04-22 06:36] LABS: Hematocrit (blood only) 39.7 % (42.0-52.0); Hemoglobin 12.8 g/dl (14.0-18.0); Mean Corpuscular Hemoglobin 27.2 pg (25.0-34.0); Mean Corpuscular Volume 84.3 fL (80.0-100.0); Platelet Count 150 K/uL (130-400); RDW Standard Deviation 45.9 fL (36.4-46.3); Red Blood Count 4.71 M/uL (4.70-6.10); White Blood Count 11.21 K/ul (4.8-10.8)
[2025-04-22 07:07] LABS: Anion Gap 9.0 (3-11); Blood Urea Nitrogen 21.0 mg/dl (6-23); Calcium 8.8 mg/dl (8.6-10.3); Carbon Dioxide 25.0 mmol/L (21-32); Chloride 105.0 mmol/L (98-107); Creatinine Clr Calc Pharmacy 75.4 ml/min; Glucose 152.0 mg/dl (70-99(Fasting)); Potassium 4.1 mmol/L (3.5-5.1); Sodium 139.0 mmol/L (136-145)
[2025-04-22 07:09] LABS: Thyroid Stimulating Hormone 2.517 uIu/ml (0.300-4.500)
[2025-04-22 07:47] VITALS: RESP 18
[2025-04-22 07:52] LABS: Creatine Kinase 136.0 U/L (30-223)
[2025-04-22] MEDS: REMOVE LIDODERM PATCH SCH (08:30)
[2025-04-22] MEDS: CYANOCOBALAMIN (B-12) 500 MCG TABLET PO SCH (09:22)
[2025-04-22] MEDS: LANTUS PER UNIT CHARGE SC SCH (09:25)
[2025-04-22 11:42] VITALS: BP 173/74; PULSE 70; TEMP 98.4; O2SAT 96
--- NOTE | 2025-04-22 13:29 | Discharge Summary ---
Discharge Summary Date of Service April 22, 2025 Principal Dx & Hospital Course #1 = Principal Diagnosis (1) Hypoglycemia: (2) Elevated troponin: (3) Fall: (4) Acute metabolic encephalopathy due to hypoglycemia: (5) GERD (gastroesophageal reflux disease): (6) Hyperlipidemia: (7) Psoriasis: (8) DM type 2 (diabetes mellitus, type 2): Plan 79yo male with type II DM on insulin, HTN, Hyperlipidemia, GERD, psoriasis. Presented via EMS after found to be hypoglycemic, confused, and had a fall. Glucose 38 in ED, improved to 131 after D50 x 1, 1L D10W fluid. Glucose then dropped to 78 and patient was started on D10 at 80 mL/hr. Patient reports he was started on "Zepbound" recently as outpatient which is a GLP-1 agonist. #hypoglycemia -severe, <40 upon ER presentation -apparently he was hyperglycemic yesterday morning, >400, with no specific etiology for such (no dietary indiscretion, etc); he told me today he rarely is >300 at home -there is confusion about how much humalog he took to correct for the high sugar - 26 units? -yesterday am, 04/20, he had his typical lantus of 48 units as well -I believe he simply over-corrected with the humalog (and had his usual lantus, and was started on Zepbound this week) -suspect he is now taking too much insulin at home in the setting of being on the recently added Zepbound -further, his T2DM is well-controlled as evidenced by a1c of 7.2% -D10W drip now d/c -pharmacy glycemic team is managiny his DM -he is requiring VERY LITTLE novolog despite eating well -suspect at discharge he will need significantly reduced doses of lantus & humalog - especially given the recent Zepbound addition -follow BSGs overnight for stability -I cannot find any other reason for the hypoglycemia (no ACS, no infectious issues, no evidence of adrenal insufficiency, etc) #acute metabolic encephalopathy - -suspect 2nd to severe hypoglycemia -resolved, has not recurred #Elevated troponin trop 25.0 -> 27.4 -no ischemic symptoms -EKG without ischemic signs/ST Changes -telemetry normal to date -suspect the minimally elevated troponin was due to myocardial demand ischemia in the setting of his severe hypoglycemia & fall -defer on echo, etc for the minimally elevated troponin #Fall/back pain -suspect fall was due to the severe hypoglycemia -neuro exam is normal today; I do not suspect any PLANS EXAMINER event leading to the fall (no TIA, etc) -t-spine CT without fracture -l-spine CT without fracture; does have herniated disc at L4-L5 HOWEVER he is having NO low back pain and NO radicular symptoms in either leg; thus, I do not believe the disc herniation at L4-L5 is acute -main complaint today is right upper back pain near the right lower ribs & scapula -check right-sided rib series and right scapular x-rays -- negative for obvious fracture -thus, his pain is likely contusion from the fall -oxy prn pain -tylenol prn pain -add voltaren gel 4gm QID to this region -lidoderm patches #HTN - -cont to hold losartan-HCTZ for now -K, Mag, and Creatinine all wnl #Hyperlipidemia - -continue asa, statin, and Zetia #mental health - -continue escitalopram -continue trazodone #BPH - -cont alpha jasper #leukocytosis - -resolved without antibiotic therapy -no infectious source by history or on exam -suspect was stress response due to severe hypoglycemia -follow carefully for signs/symptoms of any infection left message for pt's on their answering machine watch overnight anticipate d/c home on 04/22 if BSGs are stable overnight Admission HPI Per Admitting Provider Patient is a 79-year-old male with past medical history of type II DM on insulin, HTN, HLD, GERD, psoriasis. Patient presented via EMS after found to be hypoglycemic, confused, and had a fall. Glucose 38 in ED, improved to 131 after D50 x 1, 1L D10. Glucose then dropped to 78 and patient was started on D10 at 80 mL/hr. Patient seen at bedside. He stated that this morning he took his Lantus insulin which is 48 units in the morning as usual and drink 2 cups of coffee. He then used 20 units of Humalog which he typically does with his morning coffee and checked his glucose which was 425. Patient does not remember much after that however stated that his told him she thinks he used approximately 26 units additional Humalog. Later in the morning patient was then having confusion and could not get his car into the garage and then had a fall while he was in the shower back into his tub hurting his back, denies any head strike, not on any blood thinners. He did eat some casserole for lunch. Currently he states that it hurts to take a deep breath because of his back pain. He denies any dizziness, lightheadedness, chest pain, shortness of breath. Denies nicotine or alcohol use. Did take all of his morning medications as usual. Is on insulin and Zepbound (injections on Tuesdays), no longer on metformin. He wishes to be full code. Discharge Exam gen - sitting at side of bed, NAD, looks well mouth - MMM neck - no JVD heart - RRR, s1 s2, no murmur lungs - CTA b/l abd - soft NT ND BS+ ext - no edema, pulses 2+ b/l feet neuro - no facial droop; strength 5/5 x 4 exts musculo - no tenderness along the c-spine, t-spine or l-spine to palpation; paraspinal muscle tenderness upper back on right; question small bruise mid- thoracic region on right; tender along scapula on right to palpation as well as right posterior lower ribs; no tenderness with passive ROM of right shoulder; no anterior chest wall pain on right; no clavicular abnormalities Discharge Plan Discharge Items Patient Disposition: Home - Self-Care Reason For Visit: HYPOGLYCEMIA, FALL Discharge Diagnosis: 1. severe hypoglycemia - resolved; due to large amounts of insulin 2. confusion - due to #1 - resolved 3. right upper back contusion; thoracic spine CT negative for fracture; scapula and right sided rib x-rays negative for fracture 4. type 2 diabetes 5. high blood pressure 6. vitamin B12 deficiency; level 195 7. minimally elevated white blood cell count - follow-up CBC recommended in 1 week Activity: As commented below Activity Comment: gradually increase activities over the next week as tolerated Non-emergency contact: Primary Care Provider Call non-emergency contact if: you have any medication questions, your symptoms worsen, your pain is not controlled, your pain is worsening and you have a fever Follow-up/Referrals: Nato Barrientos MD [Primary Care Provider] - (see Dr Barrientos early this week for recheck of diabetes ) Diet: Carb Consistent or DM2 Addtl Attending Provider Instructions: Mr Anderson, You were hospitalized after having had a fall at home. Around the same time you had some confusion. When EMS arrived to your house your blood sugar was very low in the 40s. Upon arrival to [facility] your blood glucose level was 38. I suspect that the fall and confusion were due to the severely low blood sugar. Low blood sugar is called "hypoglycemia." (see handouts) You required an infusion of dextrose (sugar) water for a period of time until the hypoglycemia was resolved. It is not fully certain but it is possible your continuous glucose monitor on your arm was giving a wrong reading. The large amounts of insulin given for the high reading then led to the hypoglycemia. In addition to the above, it is very possible that the newly added Zepbound enhanced the chances of you having hypoglycemia. As evidenced during your stay, you are only requiring a fraction of the typical amounts of insulin you use at home. Even with lesser amounts of insulin your blood sugars have been very good (about 175 or less most times). As noted above CT scan of your mid-back (thoracic spine) did not show any broken bones. Lumbar spine CT showed a herniated disc at lumbar level 4-5 but you do not appear to be having any symptoms from this; I suspect that this is old/chronic. x-rays of the lungs were negative for punctured lung or rib fracture. Scapula x-rays were negative on the right side for broken bones. You likely suffered a contusion to the upper back area when you fell. Finally, your vitamin B12 level was low and this should be supplemented. Recommendations - 1. for diabetes - -please plan to use a standard glucometer and check your blood sugars on your fingers for the next several days; please check sugars before meals & at bedtime -keep a log of your sugars and show them to Dr Barrientos -you can then compare your sugars from the fingersticks with your continuous glucose monitoring (CGM) system to see if the CGM is functioning normally -REDUCE your lantus to 10 units each morning; start 04/23/25 -REDUCE your humalog carbohydrate ratio to 1 unit of humalog for every 15 grams of carbohydrates (sugars) consumed at meal-time -for HIGH blood sugars please use the following sliding scale/correction scale; your correction goal is 150. -if your blood sugar is 150 to 200 --- take 2 units of extra humalog -if your blood sugar is 201 to 250 --- take 4 units of extra humalog -if your blood sugar is 251 to 300 --- take 6 units of extra humalog -if your blood sugar is 301 to 350 --- take 8 units of extra humalog -if your blood sugar is 351 to 400 --- take 10 units of extra humalog and contact your family doctor for further guidance -during your stay you were requiring about 5 units of short-acting insulin with meals but I suspect you will require more at home 2. take mlky-ahz-pitkdtb vitamin B12 1000mcg daily for about [address] Barrientos can recheck your vitamin B12 level down the line. 3. for back pain - -may take hydrocodone-acetaminophen, 1 tablet every 6 hours as needed for pain -this is a narcotic pain killer medicine; it may make you sleepy/drowsy -NO DRIVING a car or heavy machinery if taking this medicine -DO NOT drink alcohol if you take this medicine -this medication may make you constipated; if you get constipated take riqa-tez-cmmkidx miralax and/or senna -this medication contains tylenol (acetaminophen) in it; thus, if you are taking this medicine, do NOT take extra ozsf-jtq-xbngszz tylenol -you may use lhxn-smi-zqbefns voltaren gel - 4 grams to the site of pain on your back every 6 hours as needed; simply rub on the spot that hurts -consider a heating pad for muscle pain/spasm Follow-up - see Dr Barrientos within the next 4-5 days if possible Return to [facility] if - -you have fevers over 100 degrees -you have uncontrolled pain in your back, or your back pain worsens -you develop any weakness of the legs, numbness or tingling of the legs, etc. -you develop low blood sugars (<70), or your blood sugars are consistently >400 -you have new chest pain or abdominal pain -you have shortness of breath -any other concerns It was our pleasure to care for you! -Romaine Samaniego, [facility] medicine Pending Studies at Discharge: Yes Studies:: tick-borne disease labs Stand-Alone Forms: My [facility] Eat Latin, Smoking Cessation Medications and DC Order Prescriptions: New cyanocobalamin (vitamin B-12) 1,000 mcg tablet 1,000 mcg PO DAILY Qty: 90 1RF Rx Instructions: take for 6 months; purchase ynim-fdk-gyzavvd hydrocodone-acetaminophen 5-325 mg tablet 1 tab PO Q6H PRN (Reason: pain) Qty: 20 0RF diclofenac sodium [Voltaren Arthritis Pain] 1 % gel 4 g topical QID PRN (Reason: back pain) Qty: 50 0RF Rx Instructions: apply to area of pain on back; may use up to 4 times/day as needed/as desired. Purchase rztb-cux-zyaqfmu. Continued trazodone 50 mg Tablet 50 mg PO HS Qty: 0 rosuvastatin [Crestor] 5 mg Tablet 5 mg PO QPM Qty: 0 aspirin [Lucia Low Dose Aspirin] 81 mg Tablet,Delayed Release (Dr/Ec) 81 mg PO QAM Qty: 0 multivitamin Tablet 1 tab PO QAM doxazosin 2 mg Tablet 2 mg PO QPM ezetimibe [Zetia] 10 mg Tablet 10 mg PO QAM gabapentin 100 mg Capsule 200 mg PO QPM losartan-hydrochlorothiazide 100-12.5 mg Tablet 1 tab PO QPM Tremfya 100 mg/mL auto-injector 100 mg SUBCUT .H1TFEOP omeprazole 20 mg capsule,delayed release(DR/EC) 20 mg PO Q OTHER DAY Rx Instructions: every other day in the morning Zepbound 2.5 mg/0.5 mL pen injector 2.5 mg SUBCUT WK Rx Instructions: tuesdays escitalopram oxalate [Lexapro] 10 mg Tablet 10 mg PO DAILY insulin lispro [Humalog U-100 Insulin] 100 unit/mL Solution 1 sliding scale dose SUBCUT USEASDIRECTD Qty: 0 0RF Patient Comments: DEPENDS ON CARBOHYDRATES THAT IM EATING - BLOOD SURGARS CHECK EVERY MEAL Rx Instructions: please use a carbohydrate ratio of 1 unit of humalog for every 15 grams of carbohydrates consumed. See discharge instructions for sliding scale for correction of high blood sugars. Changed insulin glargine [Lantus Solostar U-100 Insulin] 100 unit/mL (3 mL) insulin pen 10 unit SUBCUT QAM Qty: 0 0RF Discharge Orders: Discharge Order (Routine); Ordered 04/22/25 Ordered By: Romaine Polk/Other Patient Handouts: Hypoglycemia (Low Blood Sugar), Understanding Carbohydrates, Hypoglycemia Tx Steps Admission Data Admit Date/Time: 04/20/25 21:07 Attending Provider: Romaine Samaniego Admit Provider: Rene Moore Primary Care Provider: Nato Barrientos Other Providers: Rene Moore Hospital Stay Data Consultations 04/20/25 20:00 ED Decision to Admit Stat Diagnostic Imagining Performed 04/20/25 16:29 CT lumbar spine wo con Stat 04/20/25 17:20 CT thoracic spine wo con Stat Pending Results Patient Have Any Pending Studies at Discharge: Yes Discharge Instructions Given to Patient (Per Discharging Provider) Mr Anderson, You were hospitalized after having had a fall at home. Around the same time you had some confusion. When EMS arrived to your house your blood sugar was very low in the 40s. Upon arrival to [facility] your blood glucose level was 38. I suspect that the fall and confusion were due to the severely low blood sugar. Low blood sugar is called "hypoglycemia." (see handouts) You required an infusion of dextrose (sugar) water for a period of time until the hypoglycemia was resolved. It is not fully certain but it is possible your continuous glucose monitor on your arm was giving a wrong reading. The large amounts of insulin given for the high reading then led to the hypoglycemia. In addition to the above, it is very possible that the newly added Zepbound enhanced the chances of you having hypoglycemia. As evidenced during your stay, you are only requiring a fraction of the typical amounts of insulin you use at home. Even with lesser amounts of insulin your blood sugars have been very good (about 175 or less most times). As noted above CT scan of your mid-back (thoracic spine) did not show any broken bones. Lumbar spine CT showed a herniated disc at lumbar level 4-5 but you do not appear to be having any symptoms from this; I suspect that this is old/chronic. x-rays of the lungs were negative for punctured lung or rib fracture. Scapula x-rays were negative on the right side for broken bones. You likely suffered a contusion to the upper back area when you fell. Finally, your vitamin B12 level was low and this should be supplemented. Recommendations - 1. for diabetes - -please plan to use a standard glucometer and check your blood sugars on your fingers for the next several days; please check sugars before meals & at bedtime -keep a log of your sugars and show them to Dr Barrientos -you can then compare your sugars from the fingersticks with your continuous glucose monitoring (CGM) system to see if the CGM is functioning normally -REDUCE your lantus to 10 units each morning; start 04/23/25 -REDUCE your humalog carbohydrate ratio to 1 unit of humalog for every 15 grams of carbohydrates (sugars) consumed at meal-time -for HIGH blood sugars please use the following sliding scale/correction scale; your correction goal is 150. -if your blood sugar is 150 to 200 --- take 2 units of extra humalog -if your blood sugar is 201 to 250 --- take 4 units of extra humalog -if your blood sugar is 251 to 300 --- take 6 units of extra humalog -if your blood sugar is 301 to 350 --- take 8 units of extra humalog -if your blood sugar is 351 to 400 --- take 10 units of extra humalog and contact your family doctor for further guidance -during your stay you were requiring about 5 units of short-acting insulin with meals but I suspect you will require more at home 2. take bacd-ncf-huoguzo vitamin B12 1000mcg daily for about [address] Barrientos can recheck your vitamin B12 level down the line. 3. for back pain - -may take hydrocodone-acetaminophen, 1 tablet every 6 hours as needed for pain -this is a narcotic pain killer medicine; it may make you sleepy/drowsy -NO DRIVING a car or heavy machinery if taking this medicine -DO NOT drink alcohol if you take this medicine -this medication may make you constipated; if you get constipated take lzvy-lpo-fedbpsx miralax and/or senna -this medication contains tylenol (acetaminophen) in it; thus, if you are taking this medicine, do NOT take extra mkoj-juh-xamzfdv tylenol -you may use cvbr-kaz-okwaluu voltaren gel - 4 grams to the site of pain on your back every 6 hours as needed; simply rub on the spot that hurts -consider a heating pad for muscle pain/spasm Follow-up - see Dr Barrientos within the next 4-5 days if possible Return to [facility] if - -you have fevers over 100 degrees -you have uncontrolled pain in your back, or your back pain worsens -you develop any weakness of the legs, numbness or tingling of the legs, etc. -you develop low blood sugars (<70), or your blood sugars are consistently >400 -you have new chest pain or abdominal pain -you have shortness of breath -any other concerns It was our pleasure to care for you! -Romaine Samaniego, [facility] medicine Coding Diagnoses Hypoglycemia E16.2 Elevated troponin R79.89 Fall W19.XXXA Acute metabolic encephalopathy due to hypoglycemia G93.41; E16.2 GERD (gastroesophageal reflux disease) K21.9 Hyperlipidemia E78.5 Psoriasis L40.9 DM type 2 (diabetes mellitus, type 2) E11.9
== END 2025-04-22 14:18 | disposition home or self-care (01) | DRG 917 ==
LOC: ED 15:44 → SUATTDRO 21:07 → 2N 21:07